=== PATIENT | male | born 1960 | race Caucasian/White ===

== ENCOUNTER 2017-08-07 09:00 | Inpatient (IN) | payer OTHER ==
[2017-08-07] MEDS ORDERED: NORMAL SALINE 1000 ML 1,000 ML IV ONE (09:21)
[2017-08-07] MEDS ORDERED: ONDANSETRON HCL INJ/PF 4 MG/2 ML SDV IV ONE ×2 (09:21→13:59)
[2017-08-07] MEDS ORDERED: HYDROMORPHONE HCL INJ/PF 2 MG/ML AMPULE IV ONE ×3 (09:21→13:59)
[2017-08-07 09:54] LABS: ABSOLUTE BASOPHILS # (AUTO) 0.1 10^3/uL (0.0-0.2); ABSOLUTE EOSINOPHILS # (AUTO) 0.1 10^3/uL (0.0-0.6); ABSOLUTE LYMPHOCYTES (AUTO) 0.9 10^3/uL (0.5-4.7); ABSOLUTE MONOCYTES (AUTO) 1.1 10^3/uL (0.1-1.4); ABSOLUTE NEUT (AUTO) 13.7 10^3/uL (1.7-8.2); BASOPHILS % (AUTO) 0.6 % (0-2); EOSINOPHILS % (AUTO) 0.3 % (0-6); HEMATOCRIT 46.4 % (37.9-51.0); HEMOGLOBIN 16.1 g/dL (13.5-17.0); HGB HCT DIFFERENCE 1.9; LYMPHOCYTES % (AUTO) 5.4 % (13-45); MEAN CORPUSCULAR HEMOGLOBIN 32.5 pg (27.0-33.4); MEAN CORPUSCULAR HGB CONC 34.7 g/dL (32.0-36.0); MEAN CORPUSCULAR VOLUME 94 fl (80-97); RED BLOOD COUNT 4.96 10^6/uL (4.35-5.55); RED CELL DISTRIBUTION WIDTH 14.3 % (11.5-14.0); SEGMENTED NEUTROPHILS % (AUTO) 86.7 % (42-78); WHITE BLOOD COUNT 15.9 10^3/uL (4.0-10.5)
[2017-08-07 10:13] LABS: ALANINE AMINOTRANSFERASE 31 U/L (21-72); ALBUMIN 4.4 g/dL (3.5-5.0); ALKALINE PHOSPHATASE 102 U/L (38-126); ANION GAP 16 (5-19); ASPARTATE AMINO TRANSFERASE 22 U/L (17-59); BILIRUBIN,DIRECT 0.5 mg/dL (0.0-0.4); BILIRUBIN,TOTAL 1.3 mg/dL (0.2-1.3); BLOOD UREA NITROGEN 11 mg/dL (7-20); CALCIUM 10.4 mg/dL (8.4-10.2); CARBON DIOXIDE 23 mmol/L (22-30); CHLORIDE 100 mmol/L (98-107); CREATININE RESULT 0.93 mg/dL (0.52-1.25); GLUCOSE 114 mg/dL (75-110); POTASSIUM 3.9 mmol/L (3.6-5.0); TOTAL PROTEIN 7.7 g/dL (6.3-8.2)
--- NOTE | 2017-08-07 11:24 | ER Document Report ---
ED General - General Chief Complaint: Abdominal Pain Stated Complaint: ABDOMINAL PAIN Time Seen by Provider: 08/07/17 09:20 Mode of Arrival: Ambulatory Information source: Patient Notes: 57-year-old male history of diverticulosis diverticulitis presents with complaints of abdominal pain. Patient denies any fevers or chills. pt has never had an abscess TRAVEL OUTSIDE OF THE [place] IN LAST 30 DAYS: No - HPI Onset: Other - pt started on cipro flagyl 3 days prior with intial improvmenet and then worsening Onset/Duration: Sudden, Waxing and waning Quality of pain: Achy Severity: Mild Pain Level: 1 Associated symptoms: Nausea, Vomiting Exacerbated by: Denies Relieved by: Denies Similar symptoms previously: Yes Recently seen / treated by doctor: Yes - Related Data Allergies/Adverse Reactions: No Known Allergies Allergy (Unverified 12/07/13 15:46) Past Medical History - Social History Smoking Status: Never Smoker Cigarette use (# per day): No Chew tobacco use (# tins/day): No Smoking Education Provided: No Frequency of alcohol use: Occasional Drug Abuse: None Family History: Reviewed & Not Pertinent - Past Medical History Cardiac Medical History: Denies: Hx Coronary Artery Disease, Hx Heart Attack, Hx Hypertension Pulmonary Medical History: Denies: Hx Asthma, Hx Bronchitis, Hx COPD, Hx Pneumonia Neurological Medical History: Denies: Hx Cerebrovascular Accident, Hx Seizures Renal/ Medical History: Denies: Hx Peritoneal Dialysis Musculoskeltal Medical History: Denies Hx Arthritis Past Surgical History: Denies: Hx Pacemaker - Immunizations Hx Diphtheria, Pertussis, Tetanus Vaccination: Yes Review of Systems - Review of Systems Notes: REVIEW OF SYSTEMS: CONSTITUTIONAL : Denies fever, chills, or sweats. Denies recent illness. EENT: Denies eye, ear, throat, or mouth pain or symptoms. Denies nasal or sinus congestion or discharge. Denies throat, tongue, or mouth swelling or difficulty swallowing. CARDIOVASCULAR: Denies chest pain. Denies palpitations or racing or irregular heart beat. Denies ankle edema. RESPIRATORY: Denies cough, cold, or chest congestion. Denies shortness of breath, difficulty breathing, or wheezing. GASTROINTESTINAL: admits to abd pain nausea vomiting GENITOURINARY: Denies difficulty urinating, painful urination, burning, frequency, blood in urine, or discharge. MUSCULOSKELETAL: Denies back or neck pain or stiffness. Denies joint pain or swelling. SKIN: Denies rash, lesions or sores. HEMATOLOGIC : Denies easy bruising or bleeding. LYMPHATIC: Denies swollen, enlarged glands. NEUROLOGICAL: Denies confusion or altered mental status. Denies passing out or loss of consciousness. Denies dizziness or lightheadedness. Denies headache. Denies weakness or paralysis or loss of use of either side. Denies problems with gait or speech. Denies sensory loss, numbness, or tingling. Denies seizures. PSYCHIATRIC: Denies anxiety or stress. Denies depression, suicidal ideation, or homicidal ideation. ALL OTHER SYSTEMS REVIEWED AND NEGATIVE. Dictation was performed using [employer] voice recognition software PHYSICAL EXAMINATION: GENERAL: Well-appearing, well-nourished and in no acute distress. HEAD: Atraumatic, normocephalic. EYES: Pupils equal round and reactive to light, extraocular movements intact, sclera anicteric, conjunctiva are normal. ENT: Nares patent, oropharynx clear without exudates. Moist mucous membranes. NECK: Normal range of motion, supple without lymphadenopathy LUNGS: Breath sounds clear to auscultation bilaterally and equal. No wheezes rales or rhonchi. HEART: Regular rate and rhythm without murmurs ABDOMEN: Soft,tender in the bilateral lower abd with mild guarding Musculoskeletal: Normal range of motion, no pitting or edema. No cyanosis. NEUROLOGICAL: Cranial nerves grossly intact. Normal speech, normal gait. Normal sensory, motor exams PSYCH: Normal mood, normal affect. SKIN: Warm, Dry, normal turgor, no rashes or lesions noted. Physical Exam - Vital signs Vitals: Temp Pulse Resp BP Pulse Ox 98.1 F 103 H 26 H 137/95 H 99 08/07/17 09:03 08/07/17 09:03 08/07/17 09:03 08/07/17 09:03 08/07/17 09:03 Course - Re-evaluation Re-evalutation: 08/07/17 11:24 Patient's physical examination is concerning for an abscess, a CT is pending at this time 08/07/17 12:39 CT is concerning for abscess versus perforation Dr. Webber requests hospital admission he will evaluate patient - Vital Signs Vital signs: Temp Pulse Resp BP Pulse Ox 98.1 F 103 H 16 137/95 H 99 08/07/17 09:03 08/07/17 09:03 08/07/17 09:58 08/07/17 09:03 08/07/17 09:03 - Laboratory Result Diagrams: 08/07/17 09:36 08/07/17 09:36 Laboratory results interpreted by me: 08/07/17 08/07/17 09:36 09:36 WBC 15.9 H RDW 14.3 H Seg Neutrophils % 86.7 H Lymphocytes % 5.4 L Absolute Neutrophils 13.7 H Glucose 114 H Calcium 10.4 H Direct Bilirubin 0.5 H Discharge - Discharge Clinical Impression: Diverticulitis of intestine with abscess Qualifiers: Diverticulitis site: large intestine Diverticulitis bleeding: without bleeding Qualified Code(s): K57.20 - Diverticulitis of large intestine with perforation and abscess without bleeding Abdominal pain Qualifiers: Abdominal location: left lower quadrant Qualified Code(s): R10.32 - Left lower quadrant pain Condition: Stable Disposition: ADMITTED INPATIENT Admitting Provider: Jami Unit Admitted: Telemetry Referrals: GARY RODRIGEZ MD [Primary Care Provider] - Follow up as needed
--- NOTE | 2017-08-07 12:30 | RADIOLOGY REPORT (SQ) ---
EXAM DESCRIPTION: CT ABD/PELVIS WITH IV ORAL COMPLETED DATE/TIME: 08/07/2017 12:15 pm REASON FOR STUDY: hx diverticulosis COMPARISON: None. TECHNIQUE: CT scan of the abdomen and pelvis performed using helical scanning technique with dynamic intravenous contrast injection and with oral contrast. Images reviewed with lung, soft tissue, and b one windows. Reconstructed coronal and sagittal MPR images reviewed. Delayed images for evaluation of the urinary system also acquired. All images stored on PACS. All CT scanners at this facility use dose modulation, iterative reconstruction, and/or weight based d osing when appropriate to reduce radiation dose to as low as reasonably achievable (ALARA). [facility]: Dose Right [facility]: CareDose [facility]: Dose Right [facility]: Teradose 4D [facility]: Panna CONTRAST TYPE AND DOSE: contrast/concentration: Isovue 370.00 mg/ml; Total Contrast Delivered: 100.0 ml; Total Saline Delivered: 72.0 ml RENAL FUNCTION: BUN 11 creatinine 0.93. RADIATION DOSE: Up-to-date CT equipment and radiation dose reduction techniques were employed. CTDIv ol: 8.2 - 12.2 mGy. DLP: 1073 mGy-cm.. LIMITATIONS: None. FINDINGS: LOWER CHEST: No significant findings. No nodules or infiltrates. LIVER: Normal size. No masses. No dilated ducts. SPLEEN: Normal size. No focal lesions. PANCREAS: No masses. No significant calcifications. No adjacent inflammation or peripancreatic fluid collections. Pancreatic duct not dilated. GALLBLADDER: No identified stones by CT criteria. No inflammatory changes to suggest cholecystitis. ADRENAL GLANDS: No significant masses or asymmetry. RIGHT KIDNEY AND URETER: No solid masses. No significant calcifications. No hydronephrosis or hyd roureter. LEFT KIDNEY AND URETER: No solid masses. No significant calcifications. No hydronephrosis or hydr oureter. AORTA AND VESSELS: No aneurysm. No dissection. Renal arteries, SMA, celiac without stenosis. RETROPERITONEUM: No retroperitoneal adenopathy, hemorrhage or masses. BOWEL AND PERITONEAL CAVITY: Diverticuli in the sigmoid colon with inflammatory changes. Focal colle ction of gas and minimal fluid extending posteriorly, measuring just over 2 cm. No free fluid. No f ree air. APPENDIX: Normal. PELVIS: No mass. No free fluid. Normal bladder. ABDOMINAL WALL: No masses. No hernias. BONES: No significant or acute findings. OTHER: No other significant finding. IMPRESSION: 1. ACUTE DIVERTICULITIS IN THE SIGMOID COLON. FOCAL CONTAINED PERFORATION VERSUS EARLY DEVELOPING AB SCESS. 2. NO OTHER SIGNIFICANT OR ACUTE FINDING IN THE ABDOMEN OR PELVIS ON CT SCAN WITH IV CONTRAST. TECHNICAL DOCUMENTATION: JOB ID: [id number] Quality ID # [id number]: Final reports with documentation of one or more dose reduction techniques (e.g., Au tomated exposure control, adjustment of the mA and/or kV according to patient size, use of iterative reconstruction technique) 2010 [employer]- All Rights Reserved
[2017-08-07] MEDS ORDERED: METRONIDAZOLE 500 MG/NS RTU 100 ML IV ONE (12:38)
[2017-08-07] MEDS: NORMAL SALINE 1000 ML 1,000 ML IV PRN ×2 (13:11→14:11)
[2017-08-07] MEDS: CIPROFLOXACIN 400 MG/D5W RTU 400 MG/200 ML RTUPB IV SCH (13:15)
[2017-08-07] MEDS ORDERED: GLUCAGON,HUMAN RECOMB 1 MG INJ SUBCUT PRN (16:43)
[2017-08-07] MEDS ORDERED: DEXTROSE 50%-WATER 25 GM/50 ML DISP.SYRIN IV PRN ×2 (16:43)
[2017-08-07] MEDS ORDERED: DEXTROSE 40% GEL 15 GM TUBE PO PRN ×2 (16:43)
--- NOTE | 2017-08-07 18:53 | CONSULTATION REPORT E ---
Consultation Report NAME: DAVID ESTES : 1960 AGE: 57Y DATE: 08/07/2017 414 A TO: DERRICK AGUILAR M.D. FROM: GARY RODRIGEZ M.D. Requesting Physician REASON FOR CONSULTATION: Patient with acute sigmoid diverticulitis with small local perforation versus starting abscess. HISTORY OF PRESENT ILLNESS: This is a 57-year-old male who initially complained of lower abdominal pain with nausea and vomiting about 3 days ago. He consulted one of the ER physicians who is his neighbor and was given p.o. Flagyl and Cipro initially with some improvement but he still continued to have some mild lower abdominal pain. This morning he woke up with severe lower abdominal pain with nausea and vomiting. He felt hot 2 days ago. Today he did not have any fever at home; however, he had a CAT scan of the abdomen which showed acute sigmoid diverticulitis with small loculated perforation versus small starting abscess. His white count is elevated to 15.9. PAST MEDICAL HISTORY: He claimed he had a history of diverticulitis 2 years ago which improved medically. Cardiac history: Denies hypertension or heart attack. Pulmonary history: Denies asthma or COPD. Urologic history: Denies CVA or seizures. Renal history: Denies any renal problems. Musculoskeletal: Denies arthritis. PAST SURGICAL HISTORY: Denies any previous operations in the past. ALLERGIES: No known drug allergies. REVIEW OF SYSTEMS: Constitutional: Denies any fever or chills though felt a little warm 3 days ago. EENT: Denies ear, eye, throat or mouth pain or symptoms. Denies sinus or nasal congestion or discharge. Cardiovascular: Denies any chest pains. Respiratory: Denies cough, colds or chest congestion, no shortness of breath. Gastrointestinal: Admits to having abdominal pains with nausea and vomiting. Genitourinary: Denies difficulty voiding. Musculoskeletal: Denies any joint pain or swelling. Skin: Denies any rash or lesions or sores. Hematologic: Denies easy bruisability. Lymphatic: Denies swollen or enlarged glands. Neurologic: Denies confusion or altered mental status or passing out. Psychiatric: Denies anxiety or stress or depression. All other systems are reviewed and are negative. PHYSICAL EXAMINATION: GENERAL APPEARANCE: A well-developed, well-nourished male, alert and oriented. Right now feels comfortable after being given some pain medications. HEENT: Head is normocephalic. Eyes: Pupils are equal and reactive to light. No nasal or oropharynx exudates. NECK: Supple. LUNGS: Clear. HEART: Regular sinus rhythm. ABDOMEN: Soft with tenderness in both lower quadrants with mild guarding. MUSCULOSKELETAL: Normal range of motion, no edema. NEUROLOGIC: Cranial nerves are intact. Alert and oriented x3. PSYCHIATRIC: Normal mood and affect. SKIN: Dry and warm. Normal turgor. VITAL SIGNS: Temperature 98.1 degrees Fahrenheit, pulse 103 per minute, respiratory rate 26 per minute, blood pressure 137/95 and pulse oximetry of 99%. LABORATORY DATA: White count of 15.9 and glucose 114, direct bilirubin 0.5. CAT scan showed acute sigmoid diverticulitis with focal contained perforation versus early developing abscess. RECOMMENDATIONS: 1. Continue n.p.o. 2. Start IV antibiotics. 3. Continue hydration for pain management as needed. 4. Will follow up the patient with you. DICTATING PHYSICIAN: DERRICK AGUILAR M.D. [id number] PHY#: [id number] ID: [id number] JOB#: [id number] ACCT: [id number] cc:DERRICK AGUILAR M.D. >
[2017-08-07] MEDS: METRONIDAZOLE RTU 500 MG/NS 100 ML IV SCH (18:59)
[2017-08-07] MEDS: HYDROMORPHONE HCL INJ/PF 2 MG/ML AMPULE IV PRN (19:41)
[2017-08-07] MEDS: FAMOTIDINE INJ/PF 20 MG/2 ML SDV IV SCH (21:27)
[2017-08-07] MEDS: 1/2 NORMAL SALINE 1,000 ML IV PRN (22:01)
[2017-08-08] MEDS: METRONIDAZOLE RTU 500 MG/NS 100 ML IV SCH ×3 (01:54→16:35)
[2017-08-08] MEDS: HYDROMORPHONE HCL INJ/PF 2 MG/ML AMPULE IV PRN ×3 (01:56→21:30)
[2017-08-08] MEDS ORDERED: HYDROMORPHONE HCL INJ/PF 2 MG/ML AMPULE ONE (04:54)
[2017-08-08] MEDS ORDERED: HYDROMORPHONE HCL INJ/PF 2 MG/ML AMPULE IV ONE (05:00)
[2017-08-08 05:06] LABS: HEMATOCRIT 36.8 % (37.9-51.0); HGB HCT DIFFERENCE 2.5; MEAN CORPUSCULAR HEMOGLOBIN 33.1 pg (27.0-33.4); MEAN CORPUSCULAR HGB CONC 35.4 g/dL (32.0-36.0); MEAN CORPUSCULAR VOLUME 93 fl (80-97); RED BLOOD COUNT 3.95 10^6/uL (4.35-5.55); RED CELL DISTRIBUTION WIDTH 13.6 % (11.5-14.0); WHITE BLOOD COUNT 11.5 10^3/uL (4.0-10.5)
[2017-08-08 05:12] LABS: HEMOGLOBIN 13.1 g/dL (13.5-17.0)
--- NOTE | 2017-08-08 07:33 | PDOC H&P ---
History of Present Illness Admission Date/PCP: 08/07/17 16:44 GARY RODRIGEZ MD Patient complains of: 4d BLQ pain History of Present Illness: DAVID ESTES is a 57 year old male with 6 prior episodes of diverticulitis since 2006. 4d ago he got cipro and flagyl from Dr Chun and started to improve. Yesterday pain was worse, and he had vomiting and diarrhea. In 2000 he had an adenomatous polyp. [address] Cleary removed polyps from transverse and sigmoid. He has had 3 scopes. Past Medical History Cardiac Medical History: Reports: Hyperlipidema Denies: Coronary Artery Disease, Myocardial Infarction, Hypertension Pulmonary Medical History: Denies: Asthma, Bronchitis, Chronic Obstructive Pulmonary Disease (COPD), Pneumonia Neurological Medical History: Reports: Migraine Denies: Seizures Endocrine Medical History: Reports: None Renal/ Medical History: Reports: None Malignancy Medical History: Reports: None GI Medical History: Reports: Gastroesophageal Reflux Disease Musculoskeltal Medical History: Reports: Arthritis, Other - [id number] Psychiatric Medical History: Reports: Attention Deficit Hyperactivity Disorder, Other - panic Traumatic Medical History: Reports: None, Other - tear L pcl 2014 Hematology: Denies: Anemia Infectious Medical History: Reports: None Past Surgical History Past Surgical History: Reports: Orthopedic Surgery - orifLclavicle Denies: Pacemaker Social History Information Source: Office Lives with: Alone Smoking Status: Former Smoker Number of Years Smokin Last Time Smoked: 1998 Frequency of Alcohol Use: Social Hx Recreational Drug Use: No Hx Prescription Drug Abuse: No - Advance Directive Resuscitation Status: Full Code Family History Family History: Reviewed & Not Pertinent, Malignancy, Other - many with diverticulitis Parental Family History Reviewed: Yes Children Family History Reviewed: Yes Sibling(s) Family History Reviewed.: Yes Medication/Allergy Home Medications: Atorvastatin Calcium [Lipitor 40 mg Tablet] 40 mg PO QHS 08/07/17 Dm/P-Ephed/Acetaminoph/Doxylam [Nyquil D Cold & Flu Liquid] 1 dose PO HSP PRN Melatonin/Pyridoxine HCl (B6) [Melatonin 3 mg Tablet] 1 tab PO HSP PRN 08/07/17 Ranitidine HCl [Zantac] 300 mg PO DAILY 08/07/17 Allergies/Adverse Reactions: No Known Allergies Allergy (Unverified 12/07/13 15:46) Review of Systems Constitutional: PRESENT: fever(s), headache(s). ABSENT: weight loss Nose, Mouth, and Throat: ABSENT: sore throat Cardiovascular: ABSENT: chest pain, dyspnea on exertion, orthropnea Respiratory: ABSENT: cough Gastrointestinal: PRESENT: abdominal pain, diarrhea, vomiting. ABSENT: constipation, hematochezia, melena Genitourinary: ABSENT: difficulty urinating, dysuria, hematuria Psychiatric: PRESENT: anxiety Physical Exam Vital Signs: Temp Pulse Resp BP Pulse Ox 98.4 F 82 17 121/75 94 08/08/17 03:42 08/08/17 03:42 08/08/17 03:42 08/08/17 03:42 08/08/17 03:42 Intake & Output 08/06/17 08/07/17 08/08/17 07:59 07:59 07:59 Intake Total 2050 Output Total 200 Balance 1850 Weight 187 lb 2.759 oz General appearance: PRESENT: no acute distress Mouth exam: PRESENT: moist, neck supple Neck exam: ABSENT: lymphadenopathy, tenderness, thyromegaly, tracheal deviation Respiratory exam: PRESENT: clear to auscultation wilda Cardiovascular exam: ABSENT: diastolic murmur, irregular rhythm, systolic murmur GI/Abdominal exam: PRESENT: tenderness - mild BLQ. ABSENT: guarding, mass, organolmegaly, rebound Extremities exam: ABSENT: pedal edema Neurological exam: PRESENT: oriented to situation Psychiatric exam: PRESENT: anxious Results Laboratory Results: 08/08/17 04:48 Abnormal - 24 hr 08/07/17 08/07/17 08/08/17 09:36 09:36 04:48 WBC 15.9 H 11.5 H RBC 3.95 L Hgb 13.1 L D Hct 36.8 L RDW 14.3 H Seg Neutrophils % 86.7 H Lymphocytes % 5.4 L Absolute Neutrophils 13.7 H Glucose 114 H Calcium 10.4 H Direct Bilirubin 0.5 H Impressions: Abdomen/Pelvis CT 08/07/17 00:00 IMPRESSION: 1. ACUTE DIVERTICULITIS IN THE SIGMOID COLON. FOCAL CONTAINED PERFORATION VERSUS EARLY DEVELOPING ABSCESS. 2. NO OTHER SIGNIFICANT OR ACUTE FINDING IN THE ABDOMEN OR PELVIS ON CT SCAN WITH IV CONTRAST. Assessment & Plan - Diagnosis (1) Diverticulitis of intestine with abscess Qualifiers: Diverticulitis site: large intestine Diverticulitis bleeding: without bleeding Qualified Code(s): K57.20 - Diverticulitis of large intestine with perforation and abscess without bleeding Is this a current diagnosis for this admission?: Yes Plan: continue suraj mota. Answered many questions. Surgeons seeing too. - Inpatient Certification Medical Necessity: Failure to Improve With Outpatient Therapy, Need Close Monitoring Due to Risk of Patient Decompensation, Need For IV Fluids, Need For Continuous Telemetry Monitoring, Need for Pain Control, Need for IV Antibiotics , Risk of Complication if Not Cared For in Hospital, Risk of Diagnosis Which Will Require Inpatient Eval/Care/Monitoring
[2017-08-08] MEDS: CIPROFLOXACIN 400 MG/D5W RTU 400 MG/200 ML RTUPB IV SCH ×2 (11:23→21:31)
--- NOTE | 2017-08-08 11:29 | PDOC PROGRESS REPORT ---
Subjective Progress Note for:: 08/08/17 Subjective:: Mr Lal is a 57 year old male with marked improvement of pain since yesterday. Noted pain started on last week worsening to 7/10 yesterday. This am now pain is 1/10. On antibiotics IV and NPO. Passing flattus and hungry. Physical Exam Vital Signs: Temp Pulse Resp BP Pulse Ox 97.5 F 82 14 136/93 H 96 08/08/17 09:00 08/08/17 09:00 08/08/17 09:00 08/08/17 09:00 08/08/17 09:00 Intake & Output 08/07/17 08/08/17 08/09/17 06:59 06:59 06:59 Intake Total 2050 Output Total 200 Balance 1850 Weight 88.8 kg General appearance: PRESENT: no acute distress, cooperative Head exam: PRESENT: atraumatic, normocephalic Eye exam: PRESENT: conjunctiva pink Mouth exam: PRESENT: moist GI/Abdominal exam: PRESENT: soft, tenderness - pain LLQ low minimal, marked improvement Extremities exam: PRESENT: full ROM. ABSENT: calf tenderness, clubbing, pedal edema Neurological exam: PRESENT: alert, awake, oriented to person, oriented to place , oriented to time, oriented to situation, CN II-XII grossly intact. ABSENT: motor sensory deficit Results Laboratory Results: 08/08/17 04:48 08/08/17 04:48 WBC 11.5 H RBC 3.95 L Hgb 13.1 L D Hct 36.8 L MCV 93 MCH 33.1 MCHC 35.4 RDW 13.6 Plt Count 232 Impressions: Abdomen/Pelvis CT 08/07/17 00:00 IMPRESSION: 1. ACUTE DIVERTICULITIS IN THE SIGMOID COLON. FOCAL CONTAINED PERFORATION VERSUS EARLY DEVELOPING ABSCESS. 2. NO OTHER SIGNIFICANT OR ACUTE FINDING IN THE ABDOMEN OR PELVIS ON CT SCAN WITH IV CONTRAST. Status: Imported from PACS Assessment & Plan - Diagnosis (1) Diverticulitis of intestine with abscess Qualifiers: Diverticulitis site: large intestine Diverticulitis bleeding: without bleeding Qualified Code(s): K57.20 - Diverticulitis of large intestine with perforation and abscess without bleeding Is this a current diagnosis for this admission?: Yes Plan: Continue NPO at this time for additional 24 hours. With continued improvement clinically and normal WBC patient may be initiated on cliq diet in am tomorrow. Will continue to follow. - Time Time Spent with patient: 15-24 minutes
[2017-08-08] MEDS: FAMOTIDINE INJ/PF 20 MG/2 ML SDV IV SCH ×2 (11:33→21:31)
[2017-08-08] MEDS: 1/2 NORMAL SALINE 1,000 ML IV PRN (15:17)
[2017-08-08] MEDS: [UNRECOGNIZED DRUG - OTHER] IV SCH ×5 (17:42)
[2017-08-08] MEDS: MAGNESIUM SULFATE IV SCH ×5 (17:42)
[2017-08-08] MEDS: POTASSIUM CHLORIDE IV SCH ×5 (17:42)
[2017-08-08] MEDS: 1/2 NORMAL SALINE IV SCH ×5 (17:42)
[2017-08-08] MEDS ORDERED: NORMAL SALINE 1000 ML 1,000 ML with POTASSIUM CHLORIDE 20 MEQ, MAGNESIUM SULFATE 8 MEQ,... IV SCH ×9 (18:00)
[2017-08-09] MEDS: METRONIDAZOLE RTU 500 MG/NS 100 ML IV SCH ×3 (00:19→16:52)
[2017-08-09] MEDS: 1/2 NORMAL SALINE 1,000 ML IV PRN (02:32)
[2017-08-09] MEDS: HYDROMORPHONE HCL INJ/PF 2 MG/ML AMPULE IV PRN (03:56)
[2017-08-09 04:45] LABS: HEMATOCRIT 38.4 % (37.9-51.0); HEMOGLOBIN 13.4 g/dL (13.5-17.0); HGB HCT DIFFERENCE 1.8; MEAN CORPUSCULAR HEMOGLOBIN 32.2 pg (27.0-33.4); MEAN CORPUSCULAR VOLUME 92 fl (80-97); RED BLOOD COUNT 4.18 10^6/uL (4.35-5.55); RED CELL DISTRIBUTION WIDTH 13.9 % (11.5-14.0); WHITE BLOOD COUNT 9.9 10^3/uL (4.0-10.5)
[2017-08-09] MEDS ORDERED: ACETAMINOPHEN 325 MG TABLET PO PRN (05:02)
--- NOTE | 2017-08-09 07:21 | PDOC PROGRESS REPORT ---
Subjective Progress Note for:: 08/09/17 Subjective:: much better. Hungry Physical Exam Vital Signs: Temp Pulse Resp BP Pulse Ox 98.3 F 77 17 139/78 H 99 08/09/17 03:48 08/09/17 03:48 08/09/17 03:48 08/09/17 03:48 08/09/17 03:48 Intake & Output 08/07/17 08/08/17 08/09/17 07:59 07:59 07:59 Intake Total 2050 1800 Output Total 200 1400 Balance 1850 400 Weight 195 lb 12.328 oz 195 lb 12.328 oz General appearance: PRESENT: no acute distress Respiratory exam: PRESENT: clear to auscultation wilda Cardiovascular exam: ABSENT: diastolic murmur, irregular rhythm, systolic murmur GI/Abdominal exam: PRESENT: tenderness - minimal BLQ. ABSENT: mass, organolmegaly Extremities exam: ABSENT: pedal edema Neurological exam: PRESENT: oriented to situation Psychiatric exam: PRESENT: appropriate affect Results Laboratory Results: 08/09/17 04:21 08/09/17 04:21 WBC 9.9 RBC 4.18 L Hgb 13.4 L Hct 38.4 MCV 92 MCH 32.2 MCHC 35.0 RDW 13.9 Plt Count 289 Impressions: Abdomen/Pelvis CT 08/07/17 00:00 IMPRESSION: 1. ACUTE DIVERTICULITIS IN THE SIGMOID COLON. FOCAL CONTAINED PERFORATION VERSUS EARLY DEVELOPING ABSCESS. 2. NO OTHER SIGNIFICANT OR ACUTE FINDING IN THE ABDOMEN OR PELVIS ON CT SCAN WITH IV CONTRAST. Assessment & Plan - Diagnosis (1) Diverticulitis of intestine with abscess Qualifiers: Diverticulitis site: large intestine Diverticulitis bleeding: without bleeding Qualified Code(s): K57.20 - Diverticulitis of large intestine with perforation and abscess without bleeding Is this a current diagnosis for this admission?: Yes Plan: improving. Clear liquids - Inpatient Certification Medical Necessity: Failure to Improve With Outpatient Therapy, Need Close Monitoring Due to Risk of Patient Decompensation, Need for IV Antibiotics, Risk of Complication if Not Cared For in Hospital, Risk of Diagnosis Which Will Require Inpatient Eval/Care/Monitoring
--- NOTE | 2017-08-09 08:43 | PDOC PROGRESS REPORT ---
Subjective Progress Note for:: 08/09/17 Subjective:: Doing better today Hungry Passing flattus Abdominal pain minimal without pain meds 11/30 Physical Exam Vital Signs: Temp Pulse Resp BP Pulse Ox 98.3 F 90 17 139/78 H 99 08/09/17 03:48 08/09/17 07:00 08/09/17 03:48 08/09/17 03:48 08/09/17 03:48 Intake & Output 08/08/17 08/09/17 08/10/17 06:59 06:59 06:59 Intake Total 2050 3600 Output Total 200 1400 Balance 1850 2200 Weight 88.8 kg 88.8 kg General appearance: PRESENT: no acute distress, well-developed, well-nourished Head exam: PRESENT: atraumatic, normocephalic Neck exam: ABSENT: tenderness, thyromegaly, tracheal deviation Respiratory exam: PRESENT: accessory muscle use Pulses: PRESENT: normal dorsalis pedis pul Vascular exam: PRESENT: normal capillary refill GI/Abdominal exam: PRESENT: soft, tenderness - minimal. ABSENT: distended, firm Neurological exam: PRESENT: alert, awake, oriented to person, oriented to place , oriented to time, oriented to situation, CN II-XII grossly intact. ABSENT: motor sensory deficit Results Laboratory Results: 08/09/17 04:21 08/09/17 04:21 WBC 9.9 RBC 4.18 L Hgb 13.4 L Hct 38.4 MCV 92 MCH 32.2 MCHC 35.0 RDW 13.9 Plt Count 289 Impressions: Abdomen/Pelvis CT 08/07/17 00:00 IMPRESSION: 1. ACUTE DIVERTICULITIS IN THE SIGMOID COLON. FOCAL CONTAINED PERFORATION VERSUS EARLY DEVELOPING ABSCESS. 2. NO OTHER SIGNIFICANT OR ACUTE FINDING IN THE ABDOMEN OR PELVIS ON CT SCAN WITH IV CONTRAST. Assessment & Plan - Diagnosis (1) Diverticulitis of intestine with abscess Qualifiers: Diverticulitis site: large intestine Diverticulitis bleeding: without bleeding Qualified Code(s): K57.20 - Diverticulitis of large intestine with perforation and abscess without bleeding Is this a current diagnosis for this admission?: Yes Plan: Advance diet as tolerated to soft Pain control as needed With tolerance of diet and normal WBC and improvement of pain consider D/C home with short term follow up Oral antibiotics [id number] Surgical reeval outpatient, may require colonoscopy outpatient 6-8 weeks Call with questions Discussed with patient need for fiber supplementation
[2017-08-09] MEDS: FAMOTIDINE INJ/PF 20 MG/2 ML SDV IV SCH ×2 (09:09→21:48)
[2017-08-09] MEDS: CIPROFLOXACIN 400 MG/D5W RTU 400 MG/200 ML RTUPB IV SCH ×2 (09:35→21:47)
[2017-08-09] MEDS: [UNRECOGNIZED DRUG - OTHER] IV SCH ×5 (18:03)
[2017-08-09] MEDS: MAGNESIUM SULFATE IV SCH ×5 (18:03)
[2017-08-09] MEDS: POTASSIUM CHLORIDE IV SCH ×5 (18:03)
[2017-08-09] MEDS: 1/2 NORMAL SALINE IV SCH ×5 (18:03)
[2017-08-10] MEDS: METRONIDAZOLE RTU 500 MG/NS 100 ML IV SCH (02:01)
[2017-08-10 04:36] LABS: MEAN CORPUSCULAR HEMOGLOBIN 32.4 pg (27.0-33.4); MEAN CORPUSCULAR HGB CONC 35.1 g/dL (32.0-36.0); MEAN CORPUSCULAR VOLUME 93 fl (80-97); RED BLOOD COUNT 4.33 10^6/uL (4.35-5.55); RED CELL DISTRIBUTION WIDTH 13.6 % (11.5-14.0); WHITE BLOOD COUNT 9.4 10^3/uL (4.0-10.5)
--- NOTE | 2017-08-10 07:56 | PDOC DISCHARGE SUMMARY ---
General - Admit/Disc Date/PCP Admission Date/Primary Care Provider: 08/07/17 16:44 GARY RODRIGEZ MD Discharge Date: 08/10/17 - Discharge Diagnosis (1) Diverticulitis of intestine with abscess Is this a current diagnosis for this admission?: Yes - Additional Information Resuscitation Status: Full Code Discharge Diet: As Tolerated Discharge Activity: Activity As Tolerated Home Medications: Atorvastatin Calcium [Lipitor 40 mg Tablet] 40 mg PO QHS 08/07/17 Melatonin/Pyridoxine HCl (B6) [Melatonin 3 mg Tablet] 1 tab PO HSP PRN 08/07/17 Ranitidine HCl [Zantac] 300 mg PO DAILY 08/07/17 Ciprofloxacin HCl [Cipro 500 mg Tablet] 500 mg PO BID #28 tablet 08/10/17 Metronidazole [Flagyl 500 mg Tablet] 500 mg PO TID #42 tablet 08/10/17 History of Present Illness Patient complains of: BLQ pain History of Present Illness: DAVID ESTES is a 57 year old male with 6 prior episodes of diverticulitis since 2006. 4d ago he got cipro and flagyl from Dr Chun and started to improve. Yesterday pain was worse, and he had vomiting and diarrhea. In 2000 he had an adenomatous polyp. [address] Cleary removed polyps from transverse and sigmoid. He has had 3 scopes. Hospital Course Hospital Course: Pain and leukocytosis resolved on iv cipro & flagyl. Physical Exam Vital Signs: Temp Pulse Resp BP Pulse Ox 98.8 F 64 17 138/86 H 98 08/09/17 20:05 08/10/17 07:00 08/09/17 20:05 08/09/17 20:05 08/09/17 20:05 Intake & Output 08/08/17 08/09/17 08/10/17 07:59 07:59 07:59 Intake Total 2050 3600 1660 Output Total 200 1400 Balance 1850 2200 1660 Weight 195 lb 12.328 oz 195 lb 12.328 oz 195 lb 12.328 oz General appearance: PRESENT: no acute distress Respiratory exam: PRESENT: clear to auscultation wilda Cardiovascular exam: ABSENT: diastolic murmur, irregular rhythm, systolic murmur GI/Abdominal exam: PRESENT: tenderness - minimal LLQ. ABSENT: mass, organolmegaly Extremities exam: ABSENT: pedal edema Neurological exam: PRESENT: oriented to situation Psychiatric exam: PRESENT: anxious Results Laboratory Results: 08/10/17 03:59 Labs- Last Values WBC 9.4 10^3/uL (4.0-10.5) 08/10/17 03:59 RBC 4.33 10^6/uL (4.35-5.55) L 08/10/17 03:59 Hgb 14.0 g/dL (13.5-17.0) 08/10/17 03:59 Hct 40.0 % (37.9-51.0) 08/10/17 03:59 MCV 93 fl (80-97) 08/10/17 03:59 MCH 32.4 pg (27.0-33.4) 08/10/17 03:59 MCHC 35.1 g/dL (32.0-36.0) 08/10/17 03:59 RDW 13.6 % (11.5-14.0) 08/10/17 03:59 Plt Count 332 10^3/uL (150-450) 08/10/17 03:59 Seg Neutrophils % 86.7 % (42-78) H 08/07/17 09:36 Lymphocytes % 5.4 % (13-45) L 08/07/17 09:36 Monocytes % 7.0 % (3-13) 08/07/17 09:36 Eosinophils % 0.3 % (0-6) 08/07/17 09:36 Basophils % 0.6 % (0-2) 08/07/17 09:36 Absolute Neutrophils 13.7 10^3/uL (1.7-8.2) H 08/07/17 09:36 Absolute Lymphocytes 0.9 10^3/uL (0.5-4.7) 08/07/17 09:36 Absolute Monocytes 1.1 10^3/uL (0.1-1.4) 08/07/17 09:36 Absolute Eosinophils 0.1 10^3/uL (0.0-0.6) 08/07/17 09:36 Absolute Basophils 0.1 10^3/uL (0.0-0.2) 08/07/17 09:36 Sodium 139.0 mmol/L (137-145) 08/07/17 09:36 Potassium 3.9 mmol/L (3.6-5.0) 08/07/17 09:36 Chloride 100 mmol/L (98-107) 08/07/17 09:36 Carbon Dioxide 23 mmol/L (22-30) 08/07/17 09:36 Anion Gap 16 (5-19) 08/07/17 09:36 BUN 11 mg/dL (7-20) 08/07/17 09:36 Creatinine 0.93 mg/dL (0.52-1.25) 08/07/17 09:36 Est GFR ( Amer) > 60 (>60) 08/07/17 09:36 Est GFR (Non-Af Amer) > 60 (>60) 08/07/17 09:36 Glucose 114 mg/dL (75-110) H 08/07/17 09:36 Calcium 10.4 mg/dL (8.4-10.2) H 08/07/17 09:36 Total Bilirubin 1.3 mg/dL (0.2-1.3) 08/07/17 09:36 Direct Bilirubin 0.5 mg/dL (0.0-0.4) H 08/07/17 09:36 Indirect Bilirubin Not Reportable 08/07/17 09:36 Neonat Total Bilirubin Not Reportable 08/07/17 09:36 AST 22 U/L (17-59) 08/07/17 09:36 ALT 31 U/L (21-72) 08/07/17 09:36 Alkaline Phosphatase 102 U/L (38-126) 08/07/17 09:36 Total Protein 7.7 g/dL (6.3-8.2) 08/07/17 09:36 Albumin 4.4 g/dL (3.5-5.0) 08/07/17 09:36 Impressions: Abdomen/Pelvis CT 08/07/17 00:00 IMPRESSION: 1. ACUTE DIVERTICULITIS IN THE SIGMOID COLON. FOCAL CONTAINED PERFORATION VERSUS EARLY DEVELOPING ABSCESS. 2. NO OTHER SIGNIFICANT OR ACUTE FINDING IN THE ABDOMEN OR PELVIS ON CT SCAN WITH IV CONTRAST. Qualifiers PATEINT BEING DISCHARGED WITH ANY OF THE FOLLOWING DIAGNOSIS?: No Plan Discharge Plan: home on cipro & flagyl. 1w ov. 2m Cscop
[2017-08-10 08:25] VITALS: BP 126/77
== END 2017-08-10 09:40 | disposition home or self-care (01) | DRG 392 ==
LOC: ER 09:00 → EH 16:17 → UNDOADMIN 16:17 → EH 16:44 → 4N 17:48
PROVIDERS: ADMIT Family Medicine; ATTEND Family Medicine
DX: K57.20 Diverticulitis of large intestine with perforation and abscess without bleeding (principal); E78.5 Hyperlipidemia, unspecified; K21.9 Gastro-esophageal reflux disease without esophagitis; F90.9 Attention-deficit hyperactivity disorder, unspecified type; Z79.899 Other long term (current) drug therapy; Z87.891 Personal history of nicotine dependence
CPT/HCPCS: 36415; 74177; 80053; 85025; 85027; 87040; 96361; 96374; 96375; 96376; 99285; J0744; J1170; J2405; J3411; J3475; J3480; J3490; J7030; S0028

== ENCOUNTER 2017-10-25 08:16 | Day surgery (SDC) | payer OTHER ==
--- NOTE | 2017-10-19 11:01 | HISTORY AND PHYSICAL E ---
History and Physical NAME: DAVID ESTES : 1960 AGE: 57Y ADMITTED: 10/25/2017 ROOM: PRIMARY PHYSICIAN: Jimenez Farrell MD CHIEF COMPLAINT: Colon screening. Remote history of polyps. HISTORY OF PRESENT ILLNESS: The patient had colonoscopy in 2000 with rectal polyp adenoma. Colonoscopy, 2005, showed a 3-mm polyp in ascending colon. The patient had colonoscopy with 2-mm polyp in ascending colon, and adenomatous polyp, right colon. In 2014 colonoscopy as well showed the following: He did have polyps in sigmoid colon and the transverse colon. The patient presents at this time regarding history of polyps, for colonoscopy. ALLERGIES: No known allergies. MEDICATIONS: 1. Ambien. 2. Ibuprofen. 3. Patient takes medication for reflux. SURGERIES: Negative. SOCIAL HISTORY: Patient is single. FAMILY HISTORY: His father had CA of the colon. His mom had shoulder and knee replacements. PHYSICAL EXAMINATION: VITAL SIGNS: Blood pressure 110/90, pulse 80, respirations 18, temp is 98. HEAD, EYES, EARS, NOSE, THROAT: Normal. ABDOMEN: Soft. NEUROLOGIC: Negative. DIAGNOSTICS: Recent CT showed history of diverticulosis. CT done in July showed acute diverticulitis in the sigmoid colon, focal contained perforation. No other significant acute findings. CONCLUSION: Colon screening, remote history of polyps, diverticulosis. PLAN: Colonoscopy, 10/25/2017. DICTATING PHYSICIAN: PORSCHE DAN M.D. [id number] PHY#: [id number] ID: [id number] JOB#: [id number] ACCT: [id number] cc:PORSCHE DAN M.D., ROBERT M.D. >
[2017-10-25] MEDS ORDERED: GLYCOPYRROLATE INJ 0.4 MG/2 ML VIAL ONE (08:39)
[2017-10-25] MEDS ORDERED: ONDANSETRON HCL INJ/PF 4 MG/2 ML SDV ONE (08:39)
[2017-10-25] MEDS ORDERED: GLUCAGON,HUMAN RECOMB 1 MG INJ ONE (08:40)
[2017-10-25] MEDS ORDERED: FLUMAZENIL INJ 0.5 MG/5 ML VIAL ONE (08:40)
[2017-10-25] MEDS ORDERED: EPINEPHRINE INJ 1 MG/10 ML DISP.SYRIN ONE (08:40)
[2017-10-25] MEDS ORDERED: NALOXONE HCL INJ/PF 0.4 MG/1 ML SDV ONE (08:40)
[2017-10-25] MEDS: MIDAZOLAM 2 MG/2 ML INJ ONE ×3 (09:11→09:30)
[2017-10-25] MEDS: FENTANYL CITRATE INJ/PF 100 MCG/2 ML AMPUL ONE ×2 (09:13→09:32)
[2017-10-25 10:46] LABS: ABSOLUTE EOSINOPHILS # (AUTO) 0.1 10^3/uL (0.0-0.6); ABSOLUTE LYMPHOCYTES (AUTO) 1.1 10^3/uL (0.5-4.7); ABSOLUTE MONOCYTES (AUTO) 0.7 10^3/uL (0.1-1.4); ABSOLUTE NEUT (AUTO) 7.8 10^3/uL (1.7-8.2); BASOPHILS % (AUTO) 0.5 % (0-2); EOSINOPHILS % (AUTO) 1.1 % (0-6); HEMATOCRIT 39.7 % (37.9-51.0); HEMOGLOBIN 13.6 g/dL (13.5-17.0); HGB HCT DIFFERENCE 1.1; LYMPHOCYTES % (AUTO) 10.8 % (13-45); MEAN CORPUSCULAR HEMOGLOBIN 31.9 pg (27.0-33.4); MEAN CORPUSCULAR HGB CONC 34.2 g/dL (32.0-36.0); MEAN CORPUSCULAR VOLUME 93 fl (80-97); MONOCYTES % (AUTO) 7.3 % (3-13); RED BLOOD COUNT 4.26 10^6/uL (4.35-5.55); RED CELL DISTRIBUTION WIDTH 13.4 % (11.5-14.0); SEGMENTED NEUTROPHILS % (AUTO) 80.3 % (42-78); WHITE BLOOD COUNT 9.7 10^3/uL (4.0-10.5)
[2017-10-25 11:00] VITALS: BP 101/63
[2017-10-25 11:37] LABS: CARCINOEMBRYONIC ANTIGEN 1.5 ng/mL (<3.0); PROSTATE SPECIFIC ANTIGEN 1.19 ng/mL (<4.00)
--- NOTE | 2017-10-25 14:41 | OPERATIVE REPORT E ---
Operative Report NAME: DAVID ESTES : 1960 AGE: 57Y DATE OF SURGERY: 10/25/2017 ROOM: PREOPERATIVE DIAGNOSIS: Colon screening, history of polyps, history of diverticulosis. POSTOPERATIVE DIAGNOSIS: Sigmoid and descending colon diverticulosis, severe. Some erythema around the diverticula. Small benign-looking polyp, 2 mm, in the sigmoid, biopsy obtained. A 3-mm linear polyp in the cecum on a sharp angle beyond a fold, difficult to biopsy. We had to inject some saline to be able to biopsy it with strong peristalsis, inadequate prep, large amount of feces. is contraindicated at this time because of large amount of stool. OPERATION: Colonoscopy. SURGEON: PORSCHE DAN M.D. TISSUE REMOVED OR ALTERED: Tissue biopsy of polyp, injected and biopsied, cecum, most likely adenoma polyp, linear, sessile, behind a fold, difficult to resect because of the location, inadequate prep and moderate amount of feces. Small sigmoid polyp, 2 mm, biopsied, sigmoid. DESCRIPTION OF PROCEDURE: Rectal exam shows some nodularity in the prostate, rectum otherwise normal. Sigmoid diverticulosis, 2 mm benign-looking polyp. Descending colon diverticulosis. Transverse colon normal. Ascending colon normal. Cecum moderate amount of stool and linear 2 to 3 mm polyp beyond fold. Biopsy obtained. PLAN: 1. CBC, CEA, prostatic specific antigen. 2. Consider follow-up colonoscopy in 6 months to a year pending biopsy results. 3. Patient to be discharged on full liquid diet today, soft low residue for 5 days. 4. Awaiting lab studies and awaiting biopsies. 5. Follow-up office visit in the next few days. DICTATING PHYSICIAN: PORSCHE DAN M.D. [id number] PHY#: [id number] ID: [id number] JOB#: [id number] ACCT: [id number] cc:PORSCHE DAN M.D., ROBERT M.D. >
--- NOTE | 2017-10-25 14:43 | DISCHARGE SUMMARY E ---
Discharge Summary NAME: DAVID ESTES : 1960 AGE: 57Y ADMITTED: 10/25/2017 DISCHARGED: 10/25/2017 HOSPITAL COURSE: The patient is a 57-year-old male who has history of diverticulosis and history of polyps. Today's colonoscopy shows linear small polyp 3 mm cecum behind a fold, inadequate prep, moderate amount of stool secondary to diverticulosis, and small polyp in the sigmoid. DISCHARGE PLAN: Baseline prostate-specific antigen CEA, CBC. Full liquid diet, soft, low residue tomorrow for 3 days. Awaiting biopsy results. Consider followup colonoscopy 6 months to a year pending biopsy and lab results. DICTATING PHYSICIAN: PORSCHE DAN M.D. [id number] PHY#: [id number] ID: [id number] JOB#: [id number] ACCT: [id number] cc:PORSCHE DAN M.D., ROBERT M.D. >
== END 2017-10-25 10:50 | disposition home or self-care (01) ==
LOC: END 08:16
PROVIDERS: ATTEND Specialist
PROC: 0DDN8ZX Extraction of Sigmoid Colon, Via Natural or Artificial Opening Endoscopic, Diagnostic (ICD-10-PCS; principal; 2017-10-25 09:00)
DX: Z12.11 Encounter for screening for malignant neoplasm of colon (principal); K63.5 Polyp of colon; K57.30 Diverticulosis of large intestine without perforation or abscess without bleeding; Z86.010 Personal history of colon polyps; Z80.0 Family history of malignant neoplasm of digestive organs; Z79.1 Long term (current) use of non-steroidal anti-inflammatories (NSAID); Z79.899 Other long term (current) drug therapy
CPT/HCPCS: 45380; 45381; 36415; 82378; 84153; 85025; 88305 ×2; J2250; J3010; J1610; J2405; J0171; J2310; J3490

== ENCOUNTER 2019-03-08 07:55 | Emergency (ER) | payer OTHER ==
[2019-03-08] MEDS ORDERED: KETOROLAC TROMETHAMINE INJ/PF 30 MG/1 ML SDV IV ONE (09:02)
--- NOTE | 2019-03-08 09:05 | ER Document Report ---
ED Medical Screen (RME) - General Chief Complaint: Abdominal Pain Stated Complaint: ABDOMINAL PAIN Time Seen by Provider: 03/08/19 09:01 Primary Care Provider: GARY RODRIGEZ MD [Primary Care Provider] - Follow up as needed Mode of Arrival: Ambulatory Information source: Patient Notes: 58-year-old male presents to ED for complaint of left lower quadrant pain that started on Tuesday. He states the pain got much worse yesterday he denies nausea vomiting but he does have diarrhea. He has a history of diverticulitis 2 years ago. At that time when the diverticulosis polyps ruptured and he was in the hospital for 5 days. He states he has not had any fevers this time. He states he does have severe cramping. He does have tenderness to the left lower quadrant. Patient is alert oriented respirations regular and unlabored speaking in full sentences. I have greeted and performed a rapid initial assessment of this patient. A comprehensive ED assessment and evaluation of the patient, analysis of test results and completion of medical decision making process will be conducted by an additional ED providers. TRAVEL OUTSIDE OF THE [place] IN LAST 30 DAYS: No - Related Data Allergies/Adverse Reactions: No Known Allergies Allergy (Verified 03/08/19 07:56) Past Medical History - Past Medical History Cardiac Medical History: Reports: Hx Hypercholesterolemia Denies: Hx Coronary Artery Disease, Hx Heart Attack, Hx Hypertension Pulmonary Medical History: Denies: Hx Asthma, Hx Bronchitis, Hx COPD, Hx Pneumonia Neurological Medical History: Reports: Hx Migraine. Denies: Hx Cerebrovascular Accident, Hx Seizures Renal/ Medical History: Denies: Hx Peritoneal Dialysis GI Medical History: Reports: Hx Gastroesophageal Reflux Disease Musculoskeltal Medical History: Reports Hx Arthritis Psychiatric Medical History: Reports: Hx Attention Deficit Hyperactivity Disorder Past Surgical History: Reports: Hx Orthopedic Surgery - orifLclavicle. Denies: Hx Pacemaker - Immunizations Hx Diphtheria, Pertussis, Tetanus Vaccination: Yes History of Influenza Vaccine for 08/2017 - 01/2018 Season: No Physical Exam - Vital signs Vitals: Temp Pulse Resp BP Pulse Ox 98.2 F 92 16 119/71 97 03/08/19 07:59 03/08/19 07:59 03/08/19 07:59 03/08/19 07:59 03/08/19 07:59 Course - Vital Signs Vital signs: Temp Pulse Resp BP Pulse Ox 98.2 F 92 16 119/71 97 03/08/19 07:59 03/08/19 07:59 03/08/19 07:59 03/08/19 07:59 03/08/19 07:59 Doctor's Discharge - Discharge Referrals: GARY RODRIGEZ MD [Primary Care Provider] - Follow up as needed
[2019-03-08 09:33] LABS: HEMATOCRIT 45.2 % (37.9-51.0); HEMOGLOBIN 15.6 g/dL (13.5-17.0); MEAN CORPUSCULAR HEMOGLOBIN 33.3 pg (27.0-33.4); MEAN CORPUSCULAR HGB CONC 34.5 g/dL (32.0-36.0); MEAN CORPUSCULAR VOLUME 97 fl (80-97); RED BLOOD COUNT 4.68 10^6/uL (4.35-5.55); RED CELL DISTRIBUTION WIDTH 13.2 % (11.5-14.0); WHITE BLOOD COUNT 10.8 10^3/uL (4.0-10.5)
[2019-03-08 09:45] LABS: ALANINE AMINOTRANSFERASE 26 U/L (21-72); ALKALINE PHOSPHATASE 70 U/L (38-126); ANION GAP 7 (5-19); ASPARTATE AMINO TRANSFERASE 27 U/L (17-59); BILIRUBIN,DIRECT 0.2 mg/dL (0.0-0.4); BILIRUBIN,TOTAL 1.5 mg/dL (0.2-1.3); BLOOD UREA NITROGEN 8 mg/dL (7-20); CALCIUM 9.7 mg/dL (8.4-10.2); CARBON DIOXIDE 29 mmol/L (22-30); CHLORIDE 101 mmol/L (98-107); GLUCOSE 103 mg/dL (75-110); POTASSIUM 3.8 mmol/L (3.6-5.0); SODIUM 136.9 mmol/L (137-145); TOTAL PROTEIN 7.2 g/dL (6.3-8.2)
[2019-03-08 10:02] LABS: ABSOLUTE LYMPHOCYTES# (MANUAL) 0.3 10^3/uL (0.5-4.7); ABSOLUTE MONOCYTES # (MANUAL) 0.4 10^3/uL (0.1-1.4); BASOPHILS % (MANUAL) 0 % (0-2); EOSINOPHILS % (MANUAL) 0 % (0-6); LYMPHOCYTES % (MANUAL) 3 % (13-45); MONOCYTES % (MANUAL) 4 % (3-13); SEGMENTED NEUTROPHILS % (MAN) 93 % (42-78); TOTAL CELLS COUNTED 100
[2019-03-08 10:03] LABS: PLATELET CLUMPS PRESENT; PLATELET COMMENT ADEQUATE; PLATELET COUNT 227 10^3/uL (150-450); RBC MORPHOLOGY COMMENT NORMO-CYTIC/CHROMIC
--- NOTE | 2019-03-08 10:10 | ER Document Report ---
ED General - General Chief Complaint: Abdominal Pain Stated Complaint: ABDOMINAL PAIN Time Seen by Provider: 03/08/19 09:01 Primary Care Provider: GARY RODRIGEZ MD [Primary Care Provider] - Follow up as needed Mode of Arrival: Ambulatory TRAVEL OUTSIDE OF THE [place] IN LAST 30 DAYS: No - HPI Notes: 58-year-old gentleman who presents to the emergency department for evaluation of left lower quadrant abdominal pain. It is colicky in nature. He states is been going on since the middle of the night. Denies any fevers but he has had some chills. No nausea or vomiting. He states he had a loose bowel movement this morning. He states this all seems very consistent with a history of diverticulitis. He had to be hospitalized for it in the past. He states he had some leftover Cipro so he started taking that this morning. - Related Data Allergies/Adverse Reactions: No Known Allergies Allergy (Verified 03/08/19 07:56) Past Medical History - General Information source: Patient - Social History Smoking Status: Former Smoker Chew tobacco use (# tins/day): No Frequency of alcohol use: None Drug Abuse: None Family History: Reviewed & Not Pertinent, Malignancy, Other - many with diverticulitis Patient has suicidal ideation: No Patient has homicidal ideation: No - Past Medical History Cardiac Medical History: Reports: Hx Hypercholesterolemia Denies: Hx Coronary Artery Disease, Hx Heart Attack, Hx Hypertension Pulmonary Medical History: Denies: Hx Asthma, Hx Bronchitis, Hx COPD, Hx Pneumonia Neurological Medical History: Reports: Hx Migraine. Denies: Hx Cerebrovascular Accident, Hx Seizures Renal/ Medical History: Denies: Hx Peritoneal Dialysis GI Medical History: Reports: Hx Gastroesophageal Reflux Disease Musculoskeletal Medical History: Reports Hx Arthritis Psychiatric Medical History: Reports: Hx Attention Deficit Hyperactivity Disorder Past Surgical History: Reports: Hx Orthopedic Surgery - orifLclavicle. Denies: Hx Pacemaker - Immunizations Hx Diphtheria, Pertussis, Tetanus Vaccination: Yes Review of Systems - Review of Systems Constitutional: See HPI EENT: No symptoms reported Cardiovascular: No symptoms reported Respiratory: No symptoms reported Gastrointestinal: See HPI Genitourinary: No symptoms reported Musculoskeletal: No symptoms reported Skin: No symptoms reported Neurological/Psychological: No symptoms reported Physical Exam - Vital signs Vitals: Temp Pulse Resp BP Pulse Ox 98.2 F 92 16 119/71 97 03/08/19 07:59 03/08/19 07:59 03/08/19 07:59 03/08/19 07:59 03/08/19 07:59 - Notes Notes: Vital signs reviewed, please refer to chart. Patient is normocephalic, atraumatic. Pupils equal round, reactive to light. Neck is supple without meningismus. Heart is regular rate and rhythm. Lungs are clear to auscultation bilaterally. Abdomen is soft with mild left lower quadrant tenderness to palpation, normoactive bowel sounds throughout. Extremities without cyanosis, clubbing, edema. Peripheral pulses are equal. Skin is warm and dry. Patient is awake, alert, neurological exam is nonfocal. Course - Re-evaluation Re-evalutation: 03/08/19 10:07 Patient is a 58-year-old gentleman presents to the emergency department for evaluation of left lower quadrant abdominal pain. He has a history of pain similar that was diverticulitis. Laboratory investigations were remarkable only for mildly elevated white blood cell count, mildly elevated bilirubin. Patient states this all feels similar. He does not have a surgical abdomen. His vital signs are unremarkable. I do think it is reasonable to defer imaging at this time and treated with outpatient antibiotics. We will send him home with a small amount of pain and nausea medicine, as well as Cipro and Flagyl. He is to follow-up with his primary care physician at the beginning of next week. He is to return to the emergency department with worsening or new concerning symptoms of any sort. - Vital Signs Vital signs: Temp Pulse Resp BP Pulse Ox 98.2 F 92 16 119/71 97 03/08/19 07:59 03/08/19 07:59 03/08/19 07:59 03/08/19 07:59 03/08/19 07:59 - Laboratory Result Diagrams: 03/08/19 09:11 03/08/19 09:11 Laboratory results interpreted by me: 03/08/19 03/08/19 09:11 09:11 WBC 10.8 H Seg Neuts % (Manual) 93 H Lymphocytes % (Manual) 3 L Abs Neuts (Manual) 10.0 H Abs Lymphs (Manual) 0.3 L Sodium 136.9 L Total Bilirubin 1.5 H Discharge - Discharge Clinical Impression: Non-surgical left lower quadrant abdominal pain, Acute diverticulitis Condition: Stable Disposition: HOME, SELF-CARE Instructions: Oral Narcotic Medication ([facility]), Toradol Injection ([facility]), Diverticulitis ([facility]) Additional Instructions: Rest, stay well-hydrated with small, frequent sips of fluids. Take all the antibiotics as prescribed until gone. Nausea and pain medications as needed. If your pain worsens, you develop fevers, vomiting, or any other new or concerning symptoms, return immediately to the emergency department for evaluation. Otherwise, follow-up with your primary care physician by the beginning of next week. Referrals: GARY RODRIGEZ MD [Primary Care Provider] - Follow up as needed
[2019-03-08 10:15] LABS: APPEARANCE,URINE CLEAR; BILIRUBIN,URINE NEGATIVE (NEGATIVE); COLOR,URINE YELLOW; GLUCOSE, URINE NEGATIVE (NEGATIVE); KETONES,URINE NEGATIVE (NEGATIVE); LEUKOCYTE ESTERASE,URINE NEGATIVE (NEGATIVE); NITRITE,URINE NEGATIVE (NEGATIVE); PROTEIN,URINE NEGATIVE (NEGATIVE); URINE SPECIFIC GRAVITY 1.008; UROBILINOGEN,URINE NEGATIVE mg/dL (<2.0)
[2019-03-08 10:26] VITALS: BP 110/71
== END 2019-03-08 10:28 | disposition home or self-care (01) ==
LOC: ER 07:55
DX: K57.92 Diverticulitis of intestine, part unspecified, without perforation or abscess without bleeding (principal); R10.32 Left lower quadrant pain; R19.7 Diarrhea, unspecified; Z87.891 Personal history of nicotine dependence
CPT/HCPCS: 99284; 96374; 36415; 85025; 80053; 81001; J1885

== ENCOUNTER 2019-04-12 16:01 | Emergency (ER) | payer OTHER ==
[2019-04-12 16:11] VITALS: BP 122/74
[2019-04-12] MEDS ORDERED: ONDANSETRON 4 MG TAB.RAPDIS PO ONE (17:54)
[2019-04-12] MEDS ORDERED: HYDROCODONE/ACETAMINOPHEN 5-325 MG TABLET PO ONE (17:54)
--- NOTE | 2019-04-12 17:56 | ER Document Report ---
ED Medical Screen (RME) - General Chief Complaint: Abdominal Pain Stated Complaint: ABDOMINAL PAIN Time Seen by Provider: 04/12/19 17:42 Primary Care Provider: GARY RODRIGEZ MD [Primary Care Provider] - Follow up as needed Information source: Patient Notes: Patient presents complaining of lower abdominal pain with bloating and nausea. Patient states that he feels as though he is having a diverticulitis flareup. Patient denies any fever, vomiting or blood in the stool. Patient was seen here last month for this and placed on Cipro and Flagyl. Patient finished antibiotics about 2 weeks ago. hx: Hyperlipidemia, GERD, diverticulosis, ADHD I have greeted and performed a rapid initial assessment of this patient. A comprehensive ED assessment and evaluation of the patient, analysis of test results and completion of the medical decision making process will be conducted by additional ED providers. TRAVEL OUTSIDE OF THE [place] IN LAST 30 DAYS: No - Related Data Allergies/Adverse Reactions: No Known Allergies Allergy (Verified 04/12/19 17:53) Past Medical History - Past Medical History Cardiac Medical History: Reports: Hx Hypercholesterolemia Denies: Hx Coronary Artery Disease, Hx Heart Attack, Hx Hypertension Pulmonary Medical History: Denies: Hx Asthma, Hx Bronchitis, Hx COPD, Hx Pneumonia Neurological Medical History: Reports: Hx Migraine. Denies: Hx Cerebrovascular Accident, Hx Seizures Renal/ Medical History: Denies: Hx Peritoneal Dialysis GI Medical History: Reports: Hx Gastroesophageal Reflux Disease Musculoskeltal Medical History: Reports Hx Arthritis Psychiatric Medical History: Reports: Hx Attention Deficit Hyperactivity Disorder Past Surgical History: Reports: Hx Orthopedic Surgery - orifLclavicle. Denies: Hx Pacemaker - Immunizations Hx Diphtheria, Pertussis, Tetanus Vaccination: Yes History of Influenza Vaccine for 08/2017 - 01/2018 Season: No Physical Exam - Vital signs Vitals: Temp Pulse Resp BP Pulse Ox 98.2 F 95 19 122/74 97 04/12/19 16:10 04/12/19 16:10 04/12/19 16:10 04/12/19 16:10 04/12/19 16:10 - Abdominal Tenderness: Tender - Generalized lower abdominal tenderness Course - Vital Signs Vital signs: Temp Pulse Resp BP Pulse Ox 98.2 F 95 19 122/74 97 04/12/19 16:10 04/12/19 16:10 04/12/19 16:10 04/12/19 16:10 04/12/19 16:10 Doctor's Discharge - Discharge Referrals: GARY RODRIGEZ MD [Primary Care Provider] - Follow up as needed
[2019-04-12 18:31] LABS: ABSOLUTE EOSINOPHILS # (AUTO) 0.1 10^3/uL (0.0-0.6); ABSOLUTE LYMPHOCYTES (AUTO) 1.5 10^3/uL (0.5-4.7); ABSOLUTE NEUT (AUTO) 8.4 10^3/uL (1.7-8.2); BASOPHILS % (AUTO) 0.4 % (0-2); EOSINOPHILS % (AUTO) 0.8 % (0-6); HEMATOCRIT 43.8 % (37.9-51.0); LYMPHOCYTES % (AUTO) 13.7 % (13-45); MEAN CORPUSCULAR HEMOGLOBIN 32.8 pg (27.0-33.4); MEAN CORPUSCULAR HGB CONC 34.3 g/dL (32.0-36.0); MEAN CORPUSCULAR VOLUME 96 fl (80-97); MONOCYTES % (AUTO) 8.8 % (3-13); PLATELET COUNT 248 10^3/uL (150-450); RED BLOOD COUNT 4.58 10^6/uL (4.35-5.55); RED CELL DISTRIBUTION WIDTH 13.1 % (11.5-14.0); SEGMENTED NEUTROPHILS % (AUTO) 76.3 % (42-78); TOTAL CELLS COUNTED % (AUTO) 100 %
[2019-04-12 18:47] LABS: ALANINE AMINOTRANSFERASE 30 U/L (21-72); ALBUMIN 4.6 g/dL (3.5-5.0); ALKALINE PHOSPHATASE 89 U/L (38-126); ANION GAP 13 (5-19); ASPARTATE AMINO TRANSFERASE 30 U/L (17-59); BILIRUBIN,DIRECT 0.3 mg/dL (0.0-0.4); BILIRUBIN,TOTAL 1.3 mg/dL (0.2-1.3); BLOOD UREA NITROGEN 9 mg/dL (7-20); CARBON DIOXIDE 27 mmol/L (22-30); CHLORIDE 98 mmol/L (98-107); GLUCOSE 89 mg/dL (75-110); LIPASE 90.7 U/L (23-300); POTASSIUM 3.6 mmol/L (3.6-5.0); TOTAL PROTEIN 7.8 g/dL (6.3-8.2)
--- NOTE | 2019-04-12 22:00 | RADIOLOGY REPORT (SQ) ---
CT ABDOMEN PELVIS WITH IV CONTRAST HISTORY: Lower abdominal pain. COMPARISON: 08/06/2017 TECHNIQUE: CT scan of the abdomen and pelvis was performed with IV contrast. This exam was performed according to our departmental dose-optimization program, which includes automated exposure control, adjustment of the mA and/or kV according to patient size and/or use of iterative reconstruction technique. FINDINGS: The lung bases are clear. No pleural or pericardial effusions. There is no hiatal hernia. The liver, spleen, pancreas, gallbladder, adrenal glands, and kidneys are unremarkable. No urinary stones are seen. The pelvic organs are also unremarkable. The appendix is not seen. There are scattered colonic diverticula without surrounding inflammatory changes. No small bowel obstruction. No intraperitoneal free fluid or free air is seen. The aorta is normal caliber. There are bilateral pars defects at L4-L5 with grade 1 anterolisthesis. There are multilevel degenerative changes of the spine. No pathologic body wall hernia is seen. IMPRESSION: No acute abdominal or pelvic pathology.
[2019-04-12] MEDS ORDERED: KETOROLAC TROMETHAMINE INJ/PF 30 MG/1 ML SDV IV ONE (22:25)
[2019-04-12] MEDS ORDERED: CIPROFLOXACIN HCL 500 MG TABLET PO ONE (22:25)
--- NOTE | 2019-04-12 22:28 | ER Document Report ---
ED General - General Chief Complaint: Abdominal Pain Stated Complaint: ABDOMINAL PAIN Time Seen by Provider: 04/12/19 17:42 Primary Care Provider: GARY RODRIGEZ MD [Primary Care Provider] - Follow up in 3-5 days Notes: Patient is a 58-year-old male without chronic medical problems, presents complaining of 3 days of lower abdominal pain. The patient states that the pain started gradually, has progressively worsened since onset and is now a moderate to severe, cramping, throbbing, diffuse lower abdominal discomfort. Nothing seems to improve or worsen his pain. States that he had had similar pain in the past with diverticulitis and was seen in the emergency department approximate 1 month ago for the same. States that he got better after taking the antibiotics as prescribed but symptoms have recurred and now feels very similar. Has been nauseated but has not had vomiting. No fever. Denies dysuria or hematuria. Is sexually active monogamous with his female partner. Has not seen his primary care doctor regarding today's concerns. TRAVEL OUTSIDE OF THE [place] IN LAST 30 DAYS: No - Related Data Allergies/Adverse Reactions: No Known Allergies Allergy (Verified 04/12/19 17:53) Past Medical History - General Information source: Patient - Social History Smoking Status: Never Smoker Frequency of alcohol use: Occasional Drug Abuse: None Lives with: Spouse/Significant other Family History: Reviewed & Not Pertinent, Malignancy, Other - many with diverticulitis Patient has suicidal ideation: No Patient has homicidal ideation: No - Past Medical History Cardiac Medical History: Reports: Hx Hypercholesterolemia Denies: Hx Coronary Artery Disease, Hx Heart Attack, Hx Hypertension Pulmonary Medical History: Denies: Hx Asthma, Hx Bronchitis, Hx COPD, Hx Pneumonia Neurological Medical History: Reports: Hx Migraine. Denies: Hx Cerebrovascular Accident, Hx Seizures Renal/ Medical History: Denies: Hx Peritoneal Dialysis GI Medical History: Reports: Hx Gastroesophageal Reflux Disease Musculoskeletal Medical History: Reports Hx Arthritis Psychiatric Medical History: Reports: Hx Attention Deficit Hyperactivity Disorder Past Surgical History: Reports: Hx Orthopedic Surgery - orifLclavicle. Denies: Hx Pacemaker - Immunizations Hx Diphtheria, Pertussis, Tetanus Vaccination: Yes Review of Systems - Review of Systems Notes: Constitutional: Negative for fever. HENT: Negative for sore throat. Eyes: Negative for visual changes. Cardiovascular: Negative for chest pain. Respiratory: Negative for shortness of breath. Gastrointestinal: Positive for lower abdominal pain and nausea Genitourinary: Negative for dysuria. Musculoskeletal: Negative for back pain. Skin: Negative for rash. Neurological: Negative for headaches, weakness or numbness. 10 point ROS negative except as marked above and in HPI. Physical Exam - Vital signs Vitals: Temp Pulse Resp BP Pulse Ox 98.2 F 95 19 122/74 97 04/12/19 16:10 04/12/19 16:10 04/12/19 16:10 04/12/19 16:10 04/12/19 16:10 Interpretation: Normal Notes: PHYSICAL EXAMINATION: GENERAL: Well-appearing, well-nourished and in no acute distress. HEAD: Atraumatic, normocephalic. EYES: Pupils equal round and reactive to light, extraocular movements intact, sclera anicteric, conjunctiva are normal. ENT: nares patent, oropharynx clear without exudates. Moist mucous membranes. NECK: Normal range of motion, supple without lymphadenopathy LUNGS: Breath sounds clear to auscultation bilaterally and equal. No wheezes rales or rhonchi. HEART: Regular rate and rhythm without murmurs ABDOMEN: Soft, mild diffuse lower abdominal discomfort without localization, no rmoactive bowel sounds. No guarding, no rebound. No masses appreciated. : No epididymal or testicular tenderness bilaterally. Positive cremasteric reflex bilaterally. Normal testicular lie. Rectal: Bogginess of the prostate with mild tenderness on palpation. EXTREMITIES: Normal range of motion, no pitting or edema. No cyanosis. NEUROLOGICAL: No focal neurological deficits. Moves all extremities spontaneously and on command. PSYCH: Normal mood, normal affect. SKIN: Warm, Dry, normal turgor, no rashes or lesions noted. Course - Re-evaluation Re-evalutation: 04/12/19 22:27 Prostatitis MDM patient presents with 3 days of diffuse lower abdominal discomfort. States this feels similar to when he was treated for diverticulitis at approximately 1 month ago although no confirmatory CT was obtained at that time. A CT scan of the abdomen pelvis was obtained due to the rapidity with which the patient presented with recurrent symptoms as well as some global abdominal lower discomfort on exam. This did not demonstrate any acute findings. Labs likewise are unremarkable. Prostate exam however showed a boggy, tender prostate. Testicular exam unremarkable. I suspect the patient had some improvement on his treatment for diverticulitis as this would have included a 10-day course of ciprofloxacin. This however will be inadequate duration of treatment for prostatitis and so the patient likely had some improvement of symptoms while on antibiotics and then had recurrence after he came off. I started him on a 30-day course of ciprofloxacin and have advised him to follow-up closely with his primary care doctor and urology. At this time will discharge with return precautions and follow-up recommendations. Verbal discharge instructions given a the bedside and opportunity for questions given. Medication warnings reviewed. Patient is in agreement with this plan and has verbalized understanding of return precautions and the need for primary care follow-up in the next 24-72 hours. - Vital Signs Vital signs: Temp Pulse Resp BP Pulse Ox 98.2 F 95 19 122/74 97 04/12/19 16:10 04/12/19 16:10 04/12/19 16:10 04/12/19 16:10 04/12/19 16:10 - Laboratory Result Diagrams: 04/12/19 18:10 04/12/19 18:10 Laboratory results interpreted by me: 04/12/19 04/12/19 18:10 18:10 WBC 11.0 H Absolute Neutrophils 8.4 H Urine Ketones 20 H Ur Leukocyte Esterase TRACE H - Diagnostic Test Radiology reviewed: Reports reviewed Discharge - Discharge Clinical Impression: Lower abdominal pain Prostatitis Qualifiers: Prostatitis type: acute Qualified Code(s): N41.0 - Acute prostatitis Condition: Good Disposition: HOME, SELF-CARE Additional Instructions: Your being treated for an infection of your prostate. Please take all of the antibiotics until they are gone. Do not stop them even if you are feeling better. This infection can be related to multiple bacteria including sexually transmitted infections but can also be related to normal intestinal bacteria such as E. coli. Your CT scan does not demonstrate any evidence of diverticulitis. The remainder of your labs is normal. Please return if you develop a fever greater than 101F, have persistent vomiting, pass out, worsening of your pain, become unable to urinate, or have any other symptoms that are worrisome to you. For your pain: Take ibuprofen 600 mg and acetaminophen 1000 mg every 6 hours together as needed for pain. Prescriptions: Ciprofloxacin HCl [Cipro 500 mg Tablet] 500 mg PO BID #60 tablet Referrals: GARY RODRIGEZ MD [Primary Care Provider] - Follow up in 3-5 days
[2019-04-12 23:13] LABS: APPEARANCE,URINE CLEAR; BILIRUBIN,URINE NEGATIVE (NEGATIVE); COLOR,URINE YELLOW; GLUCOSE, URINE NEGATIVE (NEGATIVE); KETONES,URINE 20 mg/dL (NEGATIVE); LEUKOCYTE ESTERASE,URINE TRACE (NEGATIVE); NITRITE,URINE NEGATIVE (NEGATIVE); PROTEIN,URINE NEGATIVE (NEGATIVE); URINE SPECIFIC GRAVITY 1.018; UROBILINOGEN,URINE NEGATIVE mg/dL (<2.0)
== END 2019-04-12 23:14 | disposition home or self-care (01) ==
LOC: ER 16:01
DX: N41.0 Acute prostatitis (principal); R10.30 Lower abdominal pain, unspecified; R11.0 Nausea; E78.00 Pure hypercholesterolemia, unspecified
CPT/HCPCS: 99284; 96374; 36415; 87086; 83690; 85025; 80053; 81001; 74177; S0119; J1885

== ENCOUNTER 2020-10-25 13:14 | Emergency (ER) | payer OTHER ==
[2020-10-25] MEDS ORDERED: OXYCODONE-ACETAMINOPHEN 5-325 MG TABLET PO ONE (13:47)
[2020-10-25] MEDS ORDERED: PREDNISONE 20 MG TABLET PO ONE (13:49)
--- NOTE | 2020-10-25 13:56 | ER Document Report ---
ED Neck/Back Problem - General Stated Complaint: FALL/ LEG PAIN Time Seen by Provider: 10/25/20 13:37 Mode of Arrival: Ambulatory Information source: Patient Notes: 60-year-old male patient comes emergency room complaining of pain in his left buttocks going down into his left lateral foot. 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 On 10/14/2020 he began developing pain in his left low back and posterior thigh that would come and go. He was seen in urgent care and put on Flexeril, prednisone taper and an anti-inflammatory medication. He has continued to get worse. He was seen again on 10/20/2020 and prescribed Celebrex, Robaxin, and Ultram. He reports that it did help some. He had 2 good days, on Tuesday and Tuesday. Pain got worse last night and has gotten to where he cannot find a comfortable position. TRAVEL OUTSIDE OF THE [place] IN LAST 30 DAYS: No - Related Data Allergies/Adverse Reactions: No Known Allergies Allergy (Verified 04/12/19 17:53) Past Medical History - General Information source: Patient - Social History Smoking Status: Former Smoker Cigarette use (# per day): No Chew tobacco use (# tins/day): No Smoking Education Provided: No Frequency of alcohol use: Social Drug Abuse: None Lives with: Spouse/Significant other Family History: Reviewed & Not Pertinent, Malignancy, Other - many with diverticulitis Patient has suicidal ideation: No Patient has homicidal ideation: No - Past Medical History Cardiac Medical History: Reports: Hx Hypercholesterolemia Neurological Medical History: Reports: Hx Migraine GI Medical History: Reports: Hx Gastroesophageal Reflux Disease Musculoskeletal Medical History: Reports Hx Arthritis Psychiatric Medical History: Reports: Hx Attention Deficit Hyperactivity Disorder Past Surgical History: Reports: Hx Orthopedic Surgery - Right distal clavicle ORIF - Immunizations Hx Diphtheria, Pertussis, Tetanus Vaccination: Yes Review of Systems - Review of Systems Constitutional: No symptoms reported EENT: No symptoms reported Cardiovascular: No symptoms reported Respiratory: No symptoms reported Gastrointestinal: No symptoms reported Genitourinary: No symptoms reported Male Genitourinary: No symptoms reported Musculoskeletal: See HPI Skin: No symptoms reported Hematologic/Lymphatic: No symptoms reported Neurological/Psychological: See HPI Physical Exam - Vital signs Vitals: Temp 98.1 F 10/25/20 13:14 Interpretation: Tachycardic - General General appearance: Appears well, Alert In distress: Mild - Patient reports some mild discomfort, he is able to get reasonably comfortable laying on his back. - HEENT Head: Normocephalic, Atraumatic Eyes: Normal Pupils: PERRL - Respiratory Respiratory status: No respiratory distress - Cardiovascular Rhythm: Tachycardia - Abdominal Inspection: Normal - Back Back: Tender - Some mild tenderness in the left buttock region., Other - Positive straight leg raising on the left reproducing the symptoms of pain and numbness going into the left buttock, thigh, lateral calf and lateral foot. - Extremities General upper extremity: Normal inspection General lower extremity: Normal inspection - Neurological Neuro grossly intact: Yes - Psychological Associated symptoms: Normal affect, Normal mood - Skin Skin Temperature: Warm Skin Moisture: Dry Skin Color: Normal Course - Vital Signs Vital signs: Temp Pulse Resp BP Pulse Ox 98.1 F 124 H 16 128/88 H 97 10/25/20 13:17 10/25/20 13:17 10/25/20 13:17 10/25/20 13:17 10/25/20 13:17 - Diagnostic Test Radiology reviewed: Image reviewed, Reports reviewed - See the radiologist report for the MRI of the lumbar spine. Discharge - Discharge Clinical Impression: Lumbosacral radiculopathy at S1, Spinal stenosis at L4-L5 level Condition: Stable Disposition: HOME, SELF-CARE Additional Instructions: Radiculopathy Radiculopathy is irritation of a nerve. Sometimes this is called "pinched nerve." The pain can be sharp and stabbing, constant and dull, or burning in nature. The pain can occur in any area of the chest, shoulders, or arms. Sometimes the pain is provoked by coughing or moving. Radiculopathy can be caused by physical pressure on a nerve, such as a herniated disc or swollen joint in the spine. It can also be caused by viral infections within the nerve or by nerve damage due to diabetes or blood vessel disease. Radicular pain is treated with antiinflammatory medicine. Injections may help resistant cases, if we can identify a single nerve that's causing the pain. Surgery is usually not necessary. If symptoms do not improve with time, you may need additional testing, such as an MRI or EMG (electromyogram). Return if there is local weakness or numbness, shortness of breath, increasing pain, or other new symptoms. Start taking the prednisone as prescribed tomorrow. Avoid flexion at the hip is much as possible to prevent compression on the involved nerve. Call [facility] in [place] Tuesday to schedule an appointment this week with Dr. Stringer. RETURN TO THE EMERGENCY ROOM IF ANY NEW OR WORSENING SYMPTOMS. Prescriptions: Celecoxib [Celebrex 200 mg Capsule] 200 mg PO Q12 PRN #40 capsule PRN Reason: For Back Pain Prednisone [Deltasone 10 mg Tablet] 10 mg PO ASDIR PRN #21 tablet PRN Reason: Tramadol HCl [Ultram 50 mg Tablet] 50 mg PO ASDIR PRN #30 tablet PRN Reason: Referrals: TARA SZYMANSKI PA-C [Primary Care Provider] - Follow up as needed [facility] [Provider Group] - Follow up in 3-5 days TERRIE STRINGER MD [ASSOCIATE] - Follow up in 3-5 days
--- NOTE | 2020-10-25 15:48 | RADIOLOGY REPORT (SQ) ---
EXAM DESCRIPTION: MRI LUMBAR SPINE WITHOUT IMAGES COMPLETED DATE/TIME: 10/25/2020 3:15 pm REASON FOR STUDY: L S1 radiculopathy COMPARISON: None. TECHNIQUE: Sagittal and Axial imaging includes T1, T2, STIR and gradient echo sequences. Coronal T2/ HASTE imaging. LIMITATIONS: Motion. FINDINGS: VISUALIZED UPPER ABDOMEN: Limited evaluation. No acute or suspicious findings suggested. SEGMENTATION: No transitional anatomy. The lowest well-developed disc space is labeled L5-S1. ALIGNMENT: Grade 1 spondylolisthesis and spondylolysis L4-5. VERTEBRAE: Intact. BONE MARROW: Type 2 Modic endplate changes L2-3 and L4-5. DISC SIGNAL: Desiccation multiple levels. POSTERIOR ELEMENTS: See above. HARDWARE: None in the spine. CORD AND CONUS: Normal in size and signal intensity. Conus at the appropriate level. SOFT TISSUES: No aortic aneurysm seen. No bulky retroperitoneal adenopathy or mass. No paraspinal mas s or fluid. L1-L2: Mild spinal stenosis due to disc osteophyte complex. Facet arthropathy. Mild neural foramina l narrowing bilaterally. L2-L3: Similar findings as at L1-2. L3-L4: Disc bulge and facet arthropathy. No significant stenosis. L4-L5: Moderate spinal stenosis due disc osteophyte complex, malalignment and facet arthropathy. Sev ere right and moderate left neural foraminal narrowing. L5-S1: Disc bulge and facet arthropathy. No significant stenosis. LOWER THORACIC: Incompletely imaged. No stenosis seen. SACRUM: Visualized upper sacrum intact. OTHER: No other significant findings. IMPRESSION: Spondylosis, facet arthropathy and malalignment. Varying degrees of spinal stenosis, mo st severe at L4-5. Neural foraminal stenosis. TECHNICAL DOCUMENTATION: JOB ID: [id number] [employer]- All Rights Reserved Reading location - IP/workstation name: [email or web address]
[2020-10-25 16:48] VITALS: BP 117/85
== END 2020-10-25 16:49 | disposition home or self-care (01) ==
LOC: ER 13:14
DX: M48.061 Spinal stenosis, lumbar region without neurogenic claudication (principal); M54.17 Radiculopathy, lumbosacral region; M47.9 Spondylosis, unspecified; Z87.891 Personal history of nicotine dependence
CPT/HCPCS: 99284; 72148; J7512

== ENCOUNTER 2020-11-04 14:13 | Emergency (ER) | payer OTHER ==
[2020-11-04] MEDS ORDERED: ONDANSETRON HCL INJ/PF 4 MG/2 ML SDV IV ONE ×2 (15:00→17:01)
[2020-11-04] MEDS ORDERED: MORPHINE SULFATE 10 MG/ML INJ IV ONE ×2 (15:00→17:01)
--- NOTE | 2020-11-04 15:01 | ER Document Report ---
ED Medical Screen (RME) - General Chief Complaint: Abdominal Pain Stated Complaint: ABDOMINAL PAIN,VOMITING Time Seen by Provider: 11/04/20 14:59 Primary Care Provider: TARA SZYMANSKI PA-C [Primary Care Provider] - Follow up as needed Notes: HPI: 60-year-old male presenting with left lower quadrant pain that began yesterday with multiple episodes of diarrhea yesterday now constipation today. Patient with history of diverticulitis in the past believes this feels similar to prior episode of diverticulitis. Has had some nausea no vomiting no fever PHYSICAL EXAMINATION: Patient appears moderately uncomfortable. There is moderate tenderness of the left lower quadrant and slightly into the suprapubic right lower quadrant region with some guarding in the left lower quadrant I have greeted and performed a rapid initial assessment of this patient. A comprehensive ED assessment and evaluation of the patient, analysis of test results and completion of medical decision making process will be conducted by an additional ED providers. Please note that clinical decision making for this patient was made during the 2019 pandemic of novel coronavirus which caused a significant strain on the healthcare system including at this particular facility. Criteria for admission discharge and level of care decisions as well as treatment decisions have necessarily changed TRAVEL OUTSIDE OF THE [place] IN LAST 30 DAYS: No - Related Data Allergies/Adverse Reactions: No Known Allergies Allergy (Verified 11/04/20 14:56) Home Medications: gabapentin. atrovastatin. celeboxib Past Medical History - Social History Chew tobacco use (# tins/day): No Frequency of alcohol use: Social Drug Abuse: None - Past Medical History Cardiac Medical History: Reports: Hx Hypercholesterolemia Denies: Hx Coronary Artery Disease, Hx Heart Attack, Hx Hypertension Pulmonary Medical History: Denies: Hx Asthma, Hx Bronchitis, Hx COPD, Hx Pneumonia Neurological Medical History: Reports: Hx Migraine. Denies: Hx Cerebrovascular Accident, Hx Seizures Renal/ Medical History: Denies: Hx Peritoneal Dialysis GI Medical History: Reports: Hx Gastroesophageal Reflux Disease Musculoskeltal Medical History: Reports Hx Arthritis Psychiatric Medical History: Reports: Hx Attention Deficit Hyperactivity Disorder Past Surgical History: Reports: Hx Orthopedic Surgery - Right distal clavicle ORIF. Denies: Hx Pacemaker - Immunizations Hx Diphtheria, Pertussis, Tetanus Vaccination: Yes Physical Exam - Vital signs Vitals: Temp Pulse Resp BP Pulse Ox 97.8 F 109 H 20 127/82 H 97 11/04/20 14:42 11/04/20 14:42 11/04/20 14:42 11/04/20 14:42 11/04/20 14:42 Course - Vital Signs Vital signs: Temp Pulse Resp BP Pulse Ox 97.8 F 109 H 20 127/82 H 97 11/04/20 14:42 11/04/20 14:42 11/04/20 14:42 11/04/20 14:42 11/04/20 14:42 Doctor's Discharge - Discharge Referrals: TARA SZYMANSKI PA-C [Primary Care Provider] - Follow up as needed
[2020-11-04 15:32] LABS: HEMATOCRIT 47.5 % (37.9-51.0); HEMOGLOBIN 16.6 g/dL (13.5-17.0); MEAN CORPUSCULAR HEMOGLOBIN 33.8 pg (27.0-33.4); MEAN CORPUSCULAR VOLUME 97 fl (80-97); PLATELET COUNT 310 10^3/uL (150-450); RED BLOOD COUNT 4.92 10^6/uL (4.35-5.55); RED CELL DISTRIBUTION WIDTH 12.3 % (11.5-14.0); WHITE BLOOD COUNT 18.2 10^3/uL (4.0-10.5)
[2020-11-04 15:49] LABS: ALBUMIN 4.2 g/dL (3.5-5.0); ALKALINE PHOSPHATASE 88 U/L (38-126); ANION GAP 9 (5-19); ASPARTATE AMINO TRANSFERASE 24 U/L (17-59); BILIRUBIN,DIRECT 0.1 mg/dL (0.0-0.4); BILIRUBIN,TOTAL 1.6 mg/dL (0.2-1.3); BLOOD UREA NITROGEN 15 mg/dL (7-20); CALCIUM 9.9 mg/dL (8.4-10.2); CARBON DIOXIDE 26 mmol/L (22-30); CHLORIDE 97 mmol/L (98-107); GLUCOSE 123 mg/dL (75-110); POTASSIUM 3.4 mmol/L (3.6-5.0); TOTAL PROTEIN 7.3 g/dL (6.3-8.2)
[2020-11-04 16:02] LABS: ABSOLUTE LYMPHOCYTES# (MANUAL) 1.5 10^3/uL (0.5-4.7); ABSOLUTE MONOCYTES # (MANUAL) 0.5 10^3/uL (0.1-1.4); BASOPHILS % (MANUAL) 0 % (0-2); EOSINOPHILS % (MANUAL) 0 % (0-6); LYMPHOCYTES % (MANUAL) 8 % (13-45); MONOCYTES % (MANUAL) 3 % (3-13); SEGMENTED NEUTROPHILS % (MAN) 89 % (42-78); TOTAL CELLS COUNTED 100
[2020-11-04 16:04] LABS: RBC MORPHOLOGY COMMENT NORMO-CYTIC/CHROMIC
[2020-11-04 16:05] LABS: PLATELET COMMENT ADEQUATE
[2020-11-04] MEDS ORDERED: NORMAL SALINE 500 ML IV ONE (16:47)
--- NOTE | 2020-11-04 17:06 | ER Document Report ---
ED General - General Chief Complaint: Abdominal Pain Stated Complaint: ABDOMINAL PAIN,VOMITING Time Seen by Provider: 11/04/20 14:59 Primary Care Provider: TARA SZYMANSKI PA-C [Primary Care Provider] - Follow up as needed TRAVEL OUTSIDE OF THE [place] IN LAST 30 DAYS: No - HPI Notes: Patient is a 60-year-old male who presents the emergency department for evaluation of abdominal pain, nausea, vomiting. He had some diarrhea but now he is constipated. He has had 4 episodes of emesis in route to the hospital. It was nonbloody, nonbilious. He states this all feels similar to when he had diverticulitis in the past. No fever but he has had some chills. He denies any dysuria, hematuria, urinary frequency. - Related Data Allergies/Adverse Reactions: No Known Allergies Allergy (Verified 11/04/20 14:56) Home Medications: gabapentin. atrovastatin. celeboxib Past Medical History - General Information source: Patient - Social History Smoking Status: Never Smoker Chew tobacco use (# tins/day): No Frequency of alcohol use: Social Drug Abuse: None Family History: Reviewed & Not Pertinent, Malignancy, Other - many with diverticulitis Patient has homicidal ideation: No - Past Medical History Cardiac Medical History: Reports: Hx Hypercholesterolemia Denies: Hx Coronary Artery Disease, Hx Heart Attack, Hx Hypertension Pulmonary Medical History: Denies: Hx Asthma, Hx Bronchitis, Hx COPD, Hx Pneumonia Neurological Medical History: Reports: Hx Migraine. Denies: Hx Cerebrovascular Accident, Hx Seizures Renal/ Medical History: Denies: Hx Peritoneal Dialysis GI Medical History: Reports: Hx Gastroesophageal Reflux Disease Musculoskeletal Medical History: Reports Hx Arthritis, Reports Hx Sciatica Psychiatric Medical History: Reports: Hx Attention Deficit Hyperactivity Disorde r Past Surgical History: Reports: Hx Orthopedic Surgery - Right distal clavicle ORIF. Denies: Hx Pacemaker - Immunizations Hx Diphtheria, Pertussis, Tetanus Vaccination: Yes Review of Systems - Review of Systems Constitutional: See HPI EENT: No symptoms reported Cardiovascular: No symptoms reported Respiratory: No symptoms reported Gastrointestinal: See HPI Genitourinary: No symptoms reported Musculoskeletal: No symptoms reported Skin: No symptoms reported Neurological/Psychological: No symptoms reported Physical Exam - Vital signs Vitals: Temp Pulse Resp BP Pulse Ox 97.8 F 109 H 20 127/82 H 97 11/04/20 14:42 11/04/20 14:42 11/04/20 14:42 11/04/20 14:42 11/04/20 14:42 - Notes Notes: Vital signs reviewed, please refer to chart. Head is normocephalic, atraumatic. Pupils equal round, reactive to light. Neck is supple without meningismus. Heart is regular rate and rhythm. Lungs are clear to auscultation bilaterally. Abdomen is firm with global tenderness, voluntary guarding, mildly diminished bowel sounds. Extremities without cyanosis, clubbing. Posterior calves are nontender. Peripheral pulses are equal. Skin is warm and dry. Patient is awake, alert, neurological exam is nonfocal. Course - Re-evaluation Re-evalutation: 11/04/20 17:05 Patient presents to the emergency department for evaluation. He was initially seen through triage, had laboratory investigations, pain medicine, nausea medicine, n.p.o. status ordered. He did have an IV and oral contrasted scan ordered. On my exam, I do have a high suspicion for possibility of a perforat ion. I contacted CT, told him that I did not want the patient to wait, I did believe that it was most appropriate for the patient to be CT sooner rather than later. They voiced understanding and will bring him to CT at the first available opportunity. Otherwise, I ordered further pain and nausea medication. He remains n.p.o. 11/04/20 19:00 I went back into evaluate the patient in let him know about CT findings. Findings are consistent with diverticulitis and possible enteritis, but no perfo ration. I was notified by his girlfriend, outside the door, but that he was in the room going to the bathroom. Cipro and Flagyl ordered. We will go back and talk to the patient. 11/04/20 19:31 Patient is feeling stable, pain is better controlled after medication. Serial abdominal exams performed, he is now without guarding. We will start him on Cipro and Flagyl. He will be sent home with a small amount of [place], he started his pain still requires further pain medication he should be reevaluated here and he voiced understanding. He is to return to ED with worsening concerning symptoms of any sort. - Vital Signs Vital signs: Temp Pulse Resp BP Pulse Ox 97.8 F 109 H 20 127/82 H 97 11/04/20 14:42 11/04/20 14:42 11/04/20 14:42 11/04/20 14:42 11/04/20 14:42 - Laboratory Results Result Diagrams: 11/04/20 15:13 11/04/20 15:13 Laboratory Results Interpreted: 11/04/20 11/04/20 15:13 15:13 WBC 18.2 H MCH 33.8 H Seg Neuts % (Manual) 89 H Lymphocytes % (Manual) 8 L Abs Neuts (Manual) 16.2 H Sodium 132.3 L Potassium 3.4 L Chloride 97 L Glucose 123 H Total Bilirubin 1.6 H Critical Laboratory Results Reviewed: No Critical Results - Radiology Results Radiology Results Interpreted: 11/04/20 19:00 Abdomen/Pelvis CT 11/04/20 00:00 IMPRESSION: 1. Colon diverticulosis with fat stranding and some wall thickeni ng in the region of the sigmoid colon suspicious for acute diverticulitis. No abscess or free air. 2. Fat stranding and free fluid adjacent to multiple distal small bowel loops in the right lower abdomen extending adjacent to the cecum. Findings may be due to reactive inflammation or a separate enteritis. No bowel obstruction. 3. Appendix appears normal. 4. Findings suggestive of gastroesophageal reflux. Critical Radiology Results Reviewed: No Critical Results Discharge - Discharge Clinical Impression: Acute diverticulitis of intestine Condition: Stable Disposition: HOME, SELF-CARE Instructions: Low Residue Diet ([facility]), Diverticulitis ([facility]), Oral Narcotic Medication ([facility]) Additional Instructions: Please take medications as prescribed. Watch for constipation with the narcotic medication. Avoid alcohol while taking the Flagyl. Follow-up closely with your primary care provider in 1 to 2 days. If you develop fevers, vomiting or you cannot keep down the antibiotics, increased pain, or any other new or concerning symptoms, please return immediately to the emergency department for reevaluation. Prescriptions: Ciprofloxacin HCl [Cipro 750 mg Tablet] 750 mg PO BID #20 tablet Metronidazole [Flagyl 500 mg Tablet] 500 mg PO TID #21 tablet Referrals: TARA SZYMANSKI PA-C [Primary Care Provider] - Follow up as needed
[2020-11-04] MEDS ORDERED: HYDROMORPHONE HCL INJ/PF 2 MG/ML AMPULE IV ONE (18:28)
--- NOTE | 2020-11-04 18:40 | RADIOLOGY REPORT (SQ) ---
EXAM DESCRIPTION: CT ABD/PELVIS WITH IV ORAL IMAGES COMPLETED DATE/TIME: 11/04/2020 2:42 pm REASON FOR STUDY: LLQ pain diverticulitis hx COMPARISON: 08/07/2017. TECHNIQUE: CT scan of the abdomen and pelvis performed using helical scanning technique with dynamic intravenous contrast injection. Enteric contrast was also given. Images reviewed with lung, soft t issue, and bone windows. Reconstructed coronal and sagittal MPR images reviewed. Delayed images for e valuation of the urinary system also acquired. All images stored on PACS. All CT scanners at this facility use dose modulation, iterative reconstruction, and/or weight based d osing when appropriate to reduce radiation dose to as low as reasonably achievable (ALARA). [facility]: Dose Right [facility]: CareDose [facility]: Dose Right [facility]: Teradose 4D [facility]: CooCoo CONTRAST TYPE AND DOSE: contrast/concentration: Isovue 350.00 mmol/ml; Total Contrast Delivered: 95. 0 ml; Total Saline Delivered: 71.0 ml RENAL FUNCTION: Creatinine 0.79. RADIATION DOSE: CT Rad equipment meets quality standard of care and radiation dose reduction techniq ues were employed. CTDIvol: 7.6 - 10.6 mGy. DLP: 1043 mGy-cm.. LIMITATIONS: None. FINDINGS: LOWER CHEST: Bilateral dependent opacities probably representing atelectasis. LIVER: Normal size. No masses. No dilated ducts. SPLEEN: Normal size. No focal lesions. PANCREAS: No masses. No significant calcifications. No adjacent inflammation or peripancreatic fluid collections. Pancreatic duct not dilated. GALLBLADDER: No identified stones by CT criteria. No inflammatory changes to suggest cholecystitis. ADRENAL GLANDS: No significant masses or asymmetry. RIGHT KIDNEY AND URETER: No solid masses. No significant calcifications. No hydronephrosis or hyd roureter. LEFT KIDNEY AND URETER: No solid masses. No significant calcifications. No hydronephrosis or hydr oureter. AORTA AND VESSELS: No aneurysm. No dissection. Renal arteries, SMA, celiac without stenosis. RETROPERITONEUM: No retroperitoneal adenopathy, hemorrhage or masses. BOWEL AND PERITONEAL CAVITY: Colon diverticulosis. There is fat stranding and apparent wall thickeni ng at the sigmoid colon suspicious for acute diverticulitis. There is also some stranding and mild w all prominence involving some distal small bowel loops with some adjacent free fluid near the base of the cecum. No small bowel obstruction. Enteric contrast is demonstrated in the lower esophagus, goldsmith ggestive of gastroesophageal reflux. Small amount of free fluid. No free air identified. APPENDIX: Normal. The appendix appears to be separate from the above described inflammatory process, coursing superiorly. PELVIS: No mass. No free fluid. Normal bladder. ABDOMINAL WALL: Small fat containing umbilical hernia. BONES: Chronic appearing lateral left rib fracture. No destructive bone lesions. 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 OTHER: No other significant finding. IMPRESSION: 1. Colon diverticulosis with fat stranding and some wall thickening in the region of th e sigmoid colon suspicious for acute diverticulitis. No abscess or free air. 2. Fat stranding and free fluid adjacent to multiple distal small bowel loops in the right lower abd omen extending adjacent to the cecum. Findings may be due to reactive inflammation or a separate ent eritis. No bowel obstruction. 3. Appendix appears normal. 4. Findings suggestive of gastroesophageal reflux. TECHNICAL DOCUMENTATION: JOB ID: [id number] Quality ID # [id number]: Final reports with documentation of one or more dose reduction techniques (e.g., Au tomated exposure control, adjustment of the mA and/or kV according to patient size, use of iterative reconstruction technique) 2010 [employer]- All Rights Reserved Reading location - IP/workstation name: [email or web address]
[2020-11-04] MEDS ORDERED: METRONIDAZOLE 500 MG TABLET PO ONE (18:59)
[2020-11-04] MEDS ORDERED: CIPROFLOXACIN HCL 500 MG TABLET PO ONE (18:59)
[2020-11-04] MEDS ORDERED: ONDANSETRON ODT 4 MG TAB (6 TAB/ER DISP) PO PRN (19:27)
[2020-11-04] MEDS ORDERED: HYDROCODONE/ACETAMINOPHEN 5-325 MG (6 TAB/ER DISP) PO PRN (19:28)
[2020-11-04 19:47] LABS: APPEARANCE,URINE CLEAR; BILIRUBIN,URINE NEGATIVE (NEGATIVE); COLOR,URINE YELLOW; GLUCOSE, URINE NEGATIVE (NEGATIVE); KETONES,URINE TRACE mg/dL (NEGATIVE); LEUKOCYTE ESTERASE,URINE NEGATIVE (NEGATIVE); NITRITE,URINE NEGATIVE (NEGATIVE); PROTEIN,URINE NEGATIVE (NEGATIVE); URINE SPECIFIC GRAVITY 1.059; UROBILINOGEN,URINE NEGATIVE mg/dL (<2.0)
[2020-11-04] MEDS ORDERED: CALCIUM CARBONATE 500 MG TAB.CHEW PO ONE (21:53)
[2020-11-04 22:00] VITALS: BP 133/51
== END 2020-11-04 21:58 | disposition home or self-care (01) ==
LOC: ER 14:13
DX: K57.92 Diverticulitis of intestine, part unspecified, without perforation or abscess without bleeding (principal); R10.32 Left lower quadrant pain; R19.7 Diarrhea, unspecified; K59.00 Constipation, unspecified; E78.00 Pure hypercholesterolemia, unspecified
CPT/HCPCS: 96376; 99285; 96361; 96374; 96375; 36415; 83690; 85025; 80053; 81001; 74177; J2270; J1170; J2405; J7040

== ENCOUNTER 2020-11-08 11:33 | Inpatient (IN) | payer OTHER ==
[2020-11-08] MEDS ORDERED: NORMAL SALINE 1000 ML 1,000 ML IV ONE ×2 (11:41→17:13)
[2020-11-08 13:16] LABS: ABSOLUTE EOSINOPHILS # (AUTO) 0.1 10^3/uL (0.0-0.6); ABSOLUTE LYMPHOCYTES (AUTO) 0.7 10^3/uL (0.5-4.7); ABSOLUTE NEUT (AUTO) 8.8 10^3/uL (1.7-8.2); BASOPHILS % (AUTO) 0.2 % (0-2); EOSINOPHILS % (AUTO) 0.8 % (0-6); HEMATOCRIT 42.2 % (37.9-51.0); HEMOGLOBIN 14.7 g/dL (13.5-17.0); LYMPHOCYTES % (AUTO) 6.6 % (13-45); MEAN CORPUSCULAR HEMOGLOBIN 33.4 pg (27.0-33.4); MEAN CORPUSCULAR VOLUME 96 fl (80-97); MONOCYTES % (AUTO) 9.9 % (3-13); PLATELET COUNT 312 10^3/uL (150-450); RED BLOOD COUNT 4.41 10^6/uL (4.35-5.55); RED CELL DISTRIBUTION WIDTH 11.9 % (11.5-14.0); SEGMENTED NEUTROPHILS % (AUTO) 82.5 % (42-78); TOTAL CELLS COUNTED % (AUTO) 100 %; WHITE BLOOD COUNT 10.6 10^3/uL (4.0-10.5)
[2020-11-08 13:34] LABS: ALBUMIN 3.2 g/dL (3.5-5.0); ALKALINE PHOSPHATASE 63 U/L (38-126); ANION GAP 9 (5-19); ASPARTATE AMINO TRANSFERASE 20 U/L (17-59); BILIRUBIN,DIRECT 0.1 mg/dL (0.0-0.4); BILIRUBIN,TOTAL 0.9 mg/dL (0.2-1.3); BLOOD UREA NITROGEN 9 mg/dL (7-20); CALCIUM 8.5 mg/dL (8.4-10.2); CARBON DIOXIDE 28 mmol/L (22-30); CHLORIDE 91 mmol/L (98-107); GLUCOSE 99 mg/dL (75-110); POTASSIUM 3.2 mmol/L (3.6-5.0); TOTAL PROTEIN 6.2 g/dL (6.3-8.2)
--- NOTE | 2020-11-08 13:42 | ER Document Report ---
Entered by TANYA DELCID SCRIBE 11/08/20 1144 Acting as scribe for:ANDREY PAULINO MD ED GI/ - General Chief Complaint: Lower Abdominal Pain Stated Complaint: LOWER ABDOMINAL PAIN Time Seen by Provider: 11/08/20 11:40 Notes: 60-year-old male patient comes to the emergency room complaining of abdominal pain. He was seen here on 11/04/2020 with a marked leukocytosis, and CT scan showing inflammatory changes with bowel wall thickening and free fluid in the sigmoid colon region. He does have past history of diverticulitis. He has been medically managed at home and reports getting worse. He was discharged on Cipro and Flagyl. He states he has a diarrhea that looks like baby poop, and has severe pain in his pelvic area when he sits on the toilet to have bowel movements. TRAVEL OUTSIDE OF THE [place] IN LAST 30 DAYS: No - Related Data Allergies/Adverse Reactions: No Known Allergies Allergy (Verified 11/04/20 14:56) Past Medical History - General Information source: Patient - Social History Smoking Status: Former Smoker Cigarette use (# per day): No Chew tobacco use (# tins/day): No Smoking Education Provided: No Frequency of alcohol use: Heavy Drug Abuse: None Occupation: [employer] Lives with: Spouse/Significant other Family History: Reviewed & Not Pertinent, Malignancy, Other - many with diverticulitis - Past Medical History Cardiac Medical History: Reports: Hx Hypercholesterolemia Neurological Medical History: Reports: Hx Migraine GI Medical History: Reports: Hx Diverticulitis, Hx Gastroesophageal Reflux Disease Musculoskeletal Medical History: Reports Hx Arthritis Psychiatric Medical History: Reports: Hx Attention Deficit Hyperactivity Disorder Past Surgical History: Reports: Hx Orthopedic Surgery - Right distal clavicle ORIF - Immunizations Hx Diphtheria, Pertussis, Tetanus Vaccination: Yes Review of Systems - Review of Systems Constitutional: No symptoms reported EENT: No symptoms reported Cardiovascular: No symptoms reported Respiratory: No symptoms reported Gastrointestinal: See HPI, Abdominal pain, Diarrhea Genitourinary: No symptoms reported Male Genitourinary: No symptoms reported Musculoskeletal: No symptoms reported Skin: No symptoms reported Hematologic/Lymphatic: No symptoms reported Neurological/Psychological: No symptoms reported -: Yes All other systems reviewed and negative Physical Exam - Vital signs Vitals: Temp Pulse Resp BP Pulse Ox 98.1 F 113 H 16 137/92 H 95 11/08/20 11:38 12/19/20 11:38 11/08/20 11:38 11/08/20 11:38 11/08/20 11:38 - Notes Notes: Physical Exam: General: Alert, appears uncomfortable. HEENT: Normocephalic. Atraumatic. PERRL. Extraocular movements intact. Oropharynx clear. Neck: Supple. Non-tender. Respiratory: No respiratory distress. Clear and equal breath sounds bilaterally. Cardiovascular: Regular rate and rhythm. Abdominal: Exquisite lower abdominal tenderness to palpation, increasing in the suprapubic and pelvis. No distension. Hypoactive Bowel Sounds. Resonant to percuss. Back: No gross abnormalities. Extremities: Moves all four extremities. Upper extremities: Normal inspection. Normal ROM. Lower extremities: Normal inspection. No edema. Normal ROM. Neurological: Normal cognition. AAOx4. Normal speech. Psychological: Normal affect. Normal Mood. Skin: Warm. Dry. Normal color. Course - Vital Signs Vital signs: Temp Pulse Resp BP Pulse Ox 98.1 F 113 H 16 137/92 H 95 11/08/20 11:38 11/08/20 11:38 11/08/20 11:38 11/08/20 11:38 11/08/20 11:38 - Laboratory Results Result Diagrams: 11/08/20 12:59 11/08/20 12:59 Laboratory Results Interpreted: 11/08/20 11/08/20 12:59 12:59 WBC 10.6 H Lymph % (Auto) 6.6 L Absolute Neuts (auto) 8.8 H Seg Neutrophils % 82.5 H Sodium 128.1 L Potassium 3.2 L Chloride 91 L Total Protein 6.2 L Albumin 3.2 L Critical Laboratory Results Reviewed: No Critical Results - Radiology Results Critical Radiology Results Reviewed: Yes Attending or Supervising Physician who Reviewed Radiology: ANDREY PAULINO - Pelvic abscess Discharge - Discharge Clinical Impression: Hypokalemia Diverticulitis of intestine with abscess Qualifiers: Diverticulitis site: large intestine Diverticulitis bleeding: without bleeding Qualified Code(s): K57.20 - Diverticulitis of large intestine with perforation and abscess without bleeding Condition: Stable Disposition: ADMITTED INPATIENT Admitting Provider: Surgicalist Unit Admitted: Medical Floor I personally performed the services described in the documentation, reviewed and edited the documentation which was dictated to the scribe in my presence, and it accurately records my words and actions.
[2020-11-08] MEDS ORDERED: MORPHINE SULFATE 10 MG/ML INJ IV ONE (15:15)
[2020-11-08] MEDS ORDERED: RINGERS SOLUTION,LACTATED 1,000 ML IV ONE (15:15)
[2020-11-08] MEDS ORDERED: ONDANSETRON HCL INJ/PF 4 MG/2 ML SDV IV ONE (15:15)
[2020-11-08 15:29] LABS: APPEARANCE,URINE CLEAR; BILIRUBIN,URINE NEGATIVE (NEGATIVE); COLOR,URINE STRAW; GLUCOSE, URINE NEGATIVE (NEGATIVE); KETONES,URINE NEGATIVE (NEGATIVE); LEUKOCYTE ESTERASE,URINE NEGATIVE (NEGATIVE); NITRITE,URINE NEGATIVE (NEGATIVE); PROTEIN,URINE NEGATIVE (NEGATIVE); URINE SPECIFIC GRAVITY 1.003; UROBILINOGEN,URINE NEGATIVE mg/dL (<2.0)
--- NOTE | 2020-11-08 16:06 | RADIOLOGY REPORT (SQ) ---
EXAM DESCRIPTION: CT ABD/PELVIS WITH IV ORAL<Procedure Description>CT ABD/PELVIS WITH IV ORAL IMAGES COMPLETED DATE/TIME: 11/08/2020 2:58 pm<Completed Time>11/08/2020 2:58 pm REASON FOR STUDY: Failed outpatient treatment recent diverticulitis<Reason For Exam>Failed outpatien t treatment recent diverticulitis <ICD10 Code1> <ICD10 Code2> <ICD10 Code3> <ADM DX> COMPARISON: 11/04/2020 and 08/07/2017 TECHNIQUE: CT scan of the abdomen and pelvis performed using helical scanning technique with dynamic intravenous contrast injection and oral contrast. Images reviewed with lung, soft tissue, and bone w indows. Reconstructed coronal and sagittal MPR images reviewed. Delayed images were not acquired. All images stored on PACS. All CT scanners at this facility use dose modulation, iterative reconstruction, and/or weight based d osing when appropriate to reduce radiation dose to as low as reasonably achievable (ALARA). [facility]: Dose Right [facility]: CareDose [facility]: Dose Right [facility]: Teradose 4D [facility]: [employer] CONTRAST TYPE AND DOSE: contrast/concentration: Isovue 350.00 mmol/ml; Total Contrast Delivered: 94. 0 ml; Total Saline Delivered: 71.0 ml<[facility] Contrast>contrast/concentration: Isovue 350.00 mmol/ml; Tot al Contrast Delivered: 94.0 ml; Total Saline Delivered: 71.0 ml RENAL FUNCTION: GFR > 60. RADIATION DOSE: CT Rad equipment meets quality standard of care and radiation dose reduction techniq ues were employed. CTDIvol: 9.5 - 9.5 mGy. DLP: 1077 mGy-cm.<RADIATION DOSE>CT Rad equipment meets qu ality standard of care and radiation dose reduction techniques were employed. CTDIvol: 9.5 - 9.5 mGy. DLP: 1077 [facility] LIMITATIONS: None. FINDINGS: LOWER CHEST: Bilateral basilar subsegmental atelectasis. LIVER: Normal size. No enhancing masses. No dilated ducts. SPLEEN: Normal size. No focal lesions. PANCREAS: 12 mm low-density lesion in the inferior pancreatic neck, this has enlarged slightly compar ed with 2017, uncertain etiology. No significant calcifications. No adjacent inflammation or peripanc reatic fluid collections. Pancreatic duct not dilated. GALLBLADDER: No calcified stones. No inflammatory changes to suggest cholecystitis. ADRENAL GLANDS: No significant masses. RIGHT KIDNEY AND URETER: No cysts identified. No solid masses identified. No calcified stones. No hyd ronephrosis or hydroureter. LEFT KIDNEY AND URETER: No cysts identified. No solid masses identified. No calcified stones. No hydr onephrosis or hydroureter. AORTA AND VESSELS: No aneurysm. No dissection. Renal arteries, SMA, celiac without significant stenos is. RETROPERITONEUM: No bulky retroperitoneal adenopathy. BOWEL AND PERITONEAL CAVITY: 6.5 x 5.8 by 3.7 cm pelvic abscess, right of the sigmoid colon. Additio nal 2.2 cm rim enhancing abscess is present in the right lower quadrant anterior to the psoas muscle adjacent to the tip of the appendix. Moderate inflammatory changes are present throughout the pericol ic an right lower quadrant small bowel mesenteries with scattered areas of small bowel wall thickenin g. Oral contrast material passes through this region to the cecum. APPENDIX: Normal. PELVIS: 6.5 x 5.8 by 3.7 cm pelvic abscess, right of the sigmoid colon. Additional 2.2 cm rim enhanc ing abscess is present in the right lower quadrant anterior to the psoas muscle adjacent to the tip o f the appendix. Moderate inflammatory changes are present throughout the pericolic an right lower qu adrant small bowel mesenteries with scattered areas of small bowel wall thickening. Oral contrast ma terial passes through this region to the cecum. Unremarkable bladder. ABDOMINAL WALL: No masses. No hernias. BONES: No acute findings. OTHER: No other significant finding. IMPRESSION: 6.5 x 5.8 by 3.7 cm pelvic abscess, right of the sigmoid colon. Additional 2.2 cm rim e nhancing abscess is present in the right lower quadrant anterior to the psoas muscle adjacent to the tip of the appendix. Moderate inflammatory changes are present throughout the pericolic an right lowe r quadrant small bowel mesenteries with scattered areas of small bowel wall thickening. Oral contras t material passes through this region to the cecum. 12 mm low-density lesion in the inferior pancreatic neck, this has enlarged slightly compared with 20 17, uncertain etiology. TECHNICAL DOCUMENTATION: JOB ID: [id number]<Job ID>[id number] Quality ID # [id number]: Final reports with documentation of one or more dose reduction techniques (e.g., Au tomated exposure control, adjustment of the mA and/or kV according to patient size, use of iterative reconstruction technique) 2010 [employer]- All Rights Reserved Reading location - IP/workstation name: [email or web address]
[2020-11-08] MEDS ORDERED: PIPERACILLIN/TAZOBACTAM 3.375 GM VIAL IV ONE (17:14)
[2020-11-08] MEDS: POTASSI CL 20 MEQ/50 ML RIDER 20 MEQ/50 ML RTUPB IV SCH ×3 (18:07→22:06)
[2020-11-08] MEDS ORDERED: ONDANSETRON HCL INJ/PF 4 MG/2 ML SDV IV PRN (19:23)
--- NOTE | 2020-11-08 19:42 | PDOC H&P ---
History of Present Illness Admission Date/PCP: 11/08/20 17:20 TARA SZYMANSKI PA-C Patient complains of: Lower abdominal pelvic pain History of Present Illness: DAVID ESTES is a 60 year old male Presents emergency department for the second time in 4 days complaining lower abdominal pain rating to his pelvis, and perineum. He has a long history of diverticulitis managed on outpatient basis. He was seen in the emergency department 4 days ago where he was found to have a leukocytosis of 18,000, CT scan findings consistent with acute sigmoid diverticulitis, with pericolonic abscess approximately 2 cm in diameter. He was managed on outpatient basis with a p.o. Flagyl and Cipro. Because of worsening symptoms he was reevaluated today in the ED by Dr. Mac Cheema who repeated his CAT scan which demonstrated extension of the abscess to 6-1/2 cm, right perirectal area. CT scan contrast flow through the entire colon into the rectum without obstruction. Patient is receiving IV fluids, IV antibiotics and pain medication feels better. He is being admitted for further management. Of note there is a strong family history of colorectal cancer in his father at age 60, requiring resection. Mother has a strong history of diverticular disease. His last colonoscopy was 2016, he believes, with polypectomies by Dr. Jamison Past Medical History Past Medical History: History of sciatica: History of diverticulitis of sigmoid colon Cardiac Medical History: Reports: Hyperlipidema Denies: Coronary Artery Disease, Myocardial Infarction, Hypertension Pulmonary Medical History: Denies: Asthma, Bronchitis, Chronic Obstructive Pulmonary Disease (COPD), Pneumonia Neurological Medical History: Reports: Migraine Denies: Seizures GI Medical History: Reports: Diverticulitis, Gastroesophageal Reflux Disease Musculoskeltal Medical History: Reports: Arthritis Psychiatric Medical History: Reports: Attention Deficit Hyperactivity Disorder Hematology: Denies: Anemia Past Surgical History Past Surgical History: History shoulder surgery Past Surgical History: Reports: Orthopedic Surgery - Right distal clavicle ORIF Denies: Pacemaker Social History Lives with: Spouse/Significant other Smoking Status: Former Smoker Electronic Cigarette use?: No Frequency of Alcohol Use: Social Hx Recreational Drug Use: No Hx Prescription Drug Abuse: No Family History Family History: None, Reviewed & Not Pertinent, Malignancy, Other - many with diverticulitis Parental Family History Reviewed: Yes Children Family History Reviewed: Yes Sibling(s) Family History Reviewed.: Yes Medication/Allergy Home Medications: Atorvastatin Calcium [Lipitor 40 mg Tablet] 40 mg PO QHS 08/07/17 Ranitidine HCl [Zantac] 300 mg PO DAILY 08/07/17 Ciprofloxacin HCl [Cipro 500 mg Tablet] 500 mg PO BID #20 tablet 03/08/19 Ciprofloxacin HCl [Cipro 750 mg Tablet] 750 mg PO BID 03/08/19 Diclofenac Sodium 75 mg PO DAILY 03/08/19 Hydrocodone/Acetaminophen [[place]ry 5-325 mg Tablet] 1 tab PO Q6H PRN #10 tablet 03/08/19 Metronidazole [Flagyl 500 mg Tablet] 500 mg PO TID #30 tablet 03/08/19 Ondansetron [Zofran Odt 4 mg Tablet] 1 tab PO Q4H PRN #15 tab.rapdis 03/08/19 Ciprofloxacin HCl [Cipro 500 mg Tablet] 500 mg PO BID #60 tablet 04/12/19 Celecoxib [Celebrex 200 mg Capsule] 200 mg PO Q12 PRN #40 capsule 10/25/20 Prednisone [Deltasone 10 mg Tablet] 10 mg PO ASDIR PRN #21 tablet 10/25/20 Tramadol HCl [Ultram 50 mg Tablet] 50 mg PO ASDIR PRN #30 tablet 10/25/20 Ciprofloxacin HCl [Cipro 750 mg Tablet] 750 mg PO BID #20 tablet 11/04/20 Metronidazole [Flagyl 500 mg Tablet] 500 mg PO TID #21 tablet 11/04/20 Allergies/Adverse Reactions: No Known Allergies Allergy (Verified 11/04/20 14:56) Review of Systems Constitutional: PRESENT: as per HPI Eyes: ABSENT: visual disturbances Ears: ABSENT: hearing changes Cardiovascular: ABSENT: chest pain, dyspnea on exertion, edema, orthropnea, palpitations Respiratory: ABSENT: cough, hemoptysis Gastrointestinal: PRESENT: as per HPI, other - Patient denies pneumaturia Genitourinary: PRESENT: other - Some pressure with urination Musculoskeletal: ABSENT: joint swelling Integumentary: ABSENT: rash, wounds Neurological: ABSENT: abnormal gait, abnormal speech, confusion, dizziness, focal weakness, syncope Physical Exam Vital Signs: Temp Pulse Resp BP Pulse Ox 98.1 F 113 H 16 137/92 H 95 11/08/20 11:38 11/08/20 11:38 11/08/20 11:38 11/08/20 11:38 11/08/20 11:38 Intake & Output 11/07/20 11/08/20 11/09/20 06:59 06:59 06:59 Intake Total 1999 Balance 2000 Weight 82.1 kg General appearance: PRESENT: no acute distress Head exam: PRESENT: normocephalic Eye exam: PRESENT: EOMI Mouth exam: PRESENT: dry mucosa Neck exam: PRESENT: full ROM Respiratory exam: PRESENT: clear to auscultation wilda Cardiovascular exam: PRESENT: RRR Pulses: PRESENT: normal carotid pulses, normal radial pulses, normal femoral pulses, normal dorsalis pedis pul GI/Abdominal exam: PRESENT: soft - Soft, no peritoneal signs not distended, but tender over the pubic area with mild guarding Rectal exam: PRESENT: deferred Extremities exam: PRESENT: full ROM Musculoskeletal exam: PRESENT: full ROM Neurological exam: PRESENT: oriented to person, oriented to place, oriented to time, oriented to situation Psychiatric exam: PRESENT: appropriate affect Skin exam: PRESENT: dry Results Laboratory Results: 11/08/20 12:59 11/08/20 12:59 11/08/20 11/08/20 11/08/20 12:59 12:59 15:06 WBC 10.6 H RBC 4.41 Hgb 14.7 Hct 42.2 MCV 96 MCH 33.4 MCHC 35.0 RDW 11.9 Plt Count 312 Seg Neutrophils % 82.5 H Sodium 128.1 L Potassium 3.2 L Chloride 91 L Carbon Dioxide 28 Anion Gap 9 BUN 9 Creatinine 0.70 Est GFR ( Amer) > 60 Glucose 99 Calcium 8.5 Total Bilirubin 0.9 AST 20 Alkaline Phosphatase 63 Total Protein 6.2 L Albumin 3.2 L Lipase 34.9 Urine Color STRAW Urine Appearance CLEAR Urine pH 8.0 Ur Specific [place] 1.003 Urine Protein NEGATIVE Urine Glucose (UA) NEGATIVE Urine Ketones NEGATIVE Urine Blood NEGATIVE Urine Nitrite NEGATIVE Ur Leukocyte Esterase NEGATIVE Urine WBC (Auto) 0 Urine RBC (Auto) 0 Impressions: Abdomen/Pelvis CT 11/08/20 11:40 IMPRESSION: 6.5 x 5.8 by 3.7 cm pelvic abscess, right of the sigmoid colon. Additional 2.2 cm rim enhancing abscess is present in the right lower quadrant anterior to the psoas muscle adjacent to the tip of the appendix. Moderate inf lammatory changes are present throughout the pericolic an right lower quadrant small bowel mesenteries with scattered areas of small bowel wall thickening. Oral contrast material passes through this region to the cecum. 12 mm low-density lesion in the inferior pancreatic neck, this has enlarged sli ghtly compared with 2017, uncertain etiology. Assessment & Plan - Diagnosis (1) Diverticulitis of intestine with abscess Qualifiers: Diverticulitis site: large intestine Diverticulitis bleeding: without bleeding Qualified Code(s): K57.20 - Diverticulitis of large intestine with perforation and abscess without bleeding Is this a current diagnosis for this admission?: Yes Plan: Impression: Acute superimposed on chronic pancreatitis, with pericolonic abscess in the pelvis,Hinchey acute classification 2, no evidence of acute abdomen. History of recurrent diverticulitis managed on outpatient basis. Personal history of colon polyps and strong family history of colon cancer. Plan: 1. We will admit patient to the surgical service keep on clear liquids, IV fluids, intravenous antibiotics. Patient does not need emergent surgery tonight. 2. We will explore interventional radiology percutaneous drainage of the right perirectal abscess at the peritoneal reflection. This abscess may not be amenable to IR drainage. 3. I explained to patient management scenarios including current nonoperative therapy, IV antibiotics, drain placement, interval colonoscopy if able, then scheduled single stage sigmoid colectomy. This could be done open, robotically or laparoscopically. Conversely if patient deteriorates, he may require emergent surgery, colectomy and colostomy. 4. We will check patient's rapid Covid status. 4. We will also more carefully evaluate the radiologists interpretation of pancreatic neck lesion. (2) Consumes alcohol Is this a current diagnosis for this admission?: Yes (3) Elevated cholesterol Is this a current diagnosis for this admission?: Yes (4) Family history of colon cancer Is this a current diagnosis for this admission?: Yes (5) History of colon polyps Is this a current diagnosis for this admission?: Yes (6) Hypokalemia Is this a current diagnosis for this admission?: Yes (7) Pancreatic abnormality Is this a current diagnosis for this admission?: Yes Plan: CT scan report eight 1.2 cm inferior pancreatic neck lesion, new compared to 4 years ago. - Time Time Spent: 30 to 50 Minutes Critical Time spent with patient: 15-24 minutes Smoking Cessation Education: 3 to 10 minutes Medications reviewed and adjusted accordingly: Yes Anticipated Discharge Disposition: Home, Self Care Anticipated Discharge Timeframe: within 72 hours
[2020-11-08] MEDS: RINGERS SOLUTION,LACTATED 1,000 ML IV PRN (22:05)
[2020-11-08] MEDS: KETOROLAC TROMETHAMINE INJ/PF 30 MG/1 ML SDV IV PRN (22:06)
[2020-11-09] MEDS ORDERED: ACETAMINOPHEN INJ/PF 1000 MG/100 ML SDV IV SCH
[2020-11-09] MEDS: POTASSI CL 20 MEQ/50 ML RIDER 20 MEQ/50 ML RTUPB IV SCH (00:28)
[2020-11-09] MEDS: ACETAMINOPHEN 1,000 MG/100 ML RTUPB IV SCH ×6 (01:32→23:06)
[2020-11-09] MEDS ORDERED: PIPERACILLIN/TAZOBACTAM 3.375 GM VIAL IV ONE (03:54)
[2020-11-09] MEDS: PIPERACILLIN SODIUM/TAZOBACTAM 3.375 GM in NORMAL SALINE 100 ML IV SCH ×3 (04:21→18:29)
--- NOTE | 2020-11-09 11:26 | PDOC PROGRESS REPORT ---
Subjective Date:: 11/09/20 Reason For Visit: ACUTE DIVERTICULTITIS WITH PELVIC ABSCESS Patient sleeping, minimal pain overnight Physical Exam Vital Signs: Temp Pulse Resp BP Pulse Ox 98.2 F 71 17 132/82 H 99 11/09/20 08:15 11/09/20 07:11 11/09/20 07:11 11/09/20 07:11 11/09/20 07:11 Intake & Output 11/08/20 11/09/20 11/10/20 06:59 06:59 06:59 Intake Total 3100 150 Balance 3100 150 Weight 84.6 kg General appearance: PRESENT: no acute distress GI/Abdominal exam: PRESENT: other - Still has tenderness in the suprapubic area. Results Laboratory Results: 11/08/20 12:59 11/08/20 12:59 11/08/20 11/08/20 11/08/20 12:59 12:59 15:06 WBC 10.6 H RBC 4.41 Hgb 14.7 Hct 42.2 MCV 96 MCH 33.4 MCHC 35.0 RDW 11.9 Plt Count 312 Seg Neutrophils % 82.5 H Sodium 128.1 L Potassium 3.2 L Chloride 91 L Carbon Dioxide 28 Anion Gap 9 BUN 9 Creatinine 0.70 Est GFR ( Amer) > 60 Glucose 99 Calcium 8.5 Total Bilirubin 0.9 AST 20 Alkaline Phosphatase 63 Total Protein 6.2 L Albumin 3.2 L Lipase 34.9 Urine Color STRAW Urine Appearance CLEAR Urine pH 8.0 Ur Specific [place] 1.003 Urine Protein NEGATIVE Urine Glucose (UA) NEGATIVE Urine Ketones NEGATIVE Urine Blood NEGATIVE Urine Nitrite NEGATIVE Ur Leukocyte Esterase NEGATIVE Urine WBC (Auto) 0 Urine RBC (Auto) 0 Stool for White Cells 11/08/20 18:55 WBC RBC Hgb Hct MCV MCH MCHC RDW Plt Count Seg Neutrophils % Sodium Potassium Chloride Carbon Dioxide Anion Gap BUN Creatinine Est GFR ( Amer) Glucose Calcium Total Bilirubin AST Alkaline Phosphatase Total Protein Albumin Lipase Urine Color Urine Appearance Urine pH Ur Specific [place] Urine Protein Urine Glucose (UA) Urine Ketones Urine Blood Urine Nitrite Ur Leukocyte Esterase Urine WBC (Auto) Urine RBC (Auto) Stool for White Cells NO WBCs SEEN Impressions: Abdomen/Pelvis CT 11/08/20 11:40 IMPRESSION: 6.5 x 5.8 by 3.7 cm pelvic abscess, right of the sigmoid colon. Additional 2.2 cm rim enhancing abscess is present in the right lower quadrant anterior to the psoas muscle adjacent to the tip of the appendix. Moderate inflammatory changes are present throughout the pericolic an right lower quadrant small bowel mesenteries with scattered areas of small bowel wall thickening. Oral contrast material passes through this region to the cecum. 12 mm low-density lesion in the inferior pancreatic neck, this has enlarged slightly compared with 2017, uncertain etiology. Assessment & Plan - Diagnosis (1) Diverticulitis of intestine with abscess Qualifiers: Diverticulitis site: large intestine Diverticulitis bleeding: without bleeding Qualified Code(s): K57.20 - Diverticulitis of large intestine with perforation and abscess without bleeding Is this a current diagnosis for this admission?: Yes Plan: Impression: No evidence of a clinical deterioration patient with complicated diverticulitis, pelvic abscess, on intravenous antibiotics x12 hours Plan: 1. I spoke with Dr. Gee pack, radiologist, who does not feel percutaneous drainage of the perirectal deep pelvic abscess is suitable for drainage. 2. We will continue current therapy, start clear liquids. 3. We will regroup in the morning. (2) Consumes alcohol Is this a current diagnosis for this admission?: Yes (3) Elevated cholesterol Is this a current diagnosis for this admission?: Yes (4) Family history of colon cancer Is this a current diagnosis for this admission?: Yes (5) History of colon polyps Is this a current diagnosis for this admission?: Yes (6) Hypokalemia Is this a current diagnosis for this admission?: Yes (7) Pancreatic abnormality Is this a current diagnosis for this admission?: Yes - Time Anticipated Discharge Disposition: Home, Self Care Anticipated Discharge Timeframe: within 24 hours
[2020-11-09] MEDS: RINGERS SOLUTION,LACTATED 1,000 ML IV PRN (11:42)
[2020-11-09] MEDS: KETOROLAC TROMETHAMINE INJ/PF 30 MG/1 ML SDV IV PRN (18:28)
[2020-11-09] MEDS ORDERED: ZOLPIDEM TARTRATE 5 MG TABLET PO ONE (20:30)
[2020-11-10] MEDS ORDERED: GLUCAGON,HUMAN RECOMB 1 MG INJ SUBCUT PRN (00:42)
[2020-11-10] MEDS ORDERED: DEXTROSE 40% GEL 15 GM TUBE PO PRN ×2 (00:42)
[2020-11-10] MEDS ORDERED: DEXTROSE 50%-WATER 25 GM/50 ML DISP.SYRIN IV PRN ×2 (00:42)
[2020-11-10] MEDS: PIPERACILLIN SODIUM/TAZOBACTAM 3.375 GM in NORMAL SALINE 100 ML IV SCH ×3 (02:05→19:15)
[2020-11-10] MEDS: RINGERS SOLUTION,LACTATED 1,000 ML IV PRN ×2 (02:05→08:44)
[2020-11-10] MEDS: KETOROLAC TROMETHAMINE INJ/PF 30 MG/1 ML SDV IV PRN ×4 (02:11→22:28)
[2020-11-10] MEDS: ACETAMINOPHEN 1,000 MG/100 ML RTUPB IV SCH ×4 (05:19→23:09)
--- NOTE | 2020-11-10 09:59 | PDOC PROGRESS REPORT ---
Subjective Date:: 11/10/20 Reason For Visit: ACUTE DIVERTICULTITIS WITH PELVIC ABSCESS Patient feels better, no fever, continues on IV antibiotics. Physical Exam Vital Signs: Temp Pulse Resp BP Pulse Ox 98.1 F 75 17 158/54 H 100 11/10/20 07:43 11/10/20 07:43 11/09/20 23:00 11/10/20 07:43 11/10/20 07:43 Intake & Output 11/09/20 11/10/20 11/11/20 06:59 06:59 06:59 Intake Total 4100 1806 1000 Balance 4100 1806 1000 Weight 84.6 kg 81.8 kg General appearance: PRESENT: no acute distress GI/Abdominal exam: PRESENT: other - Abdomen much softer, minimal suprapubic t enderness. Results Laboratory Results: 11/08/20 12:59 11/08/20 12:59 11/08/20 18:55 Stool - Stool - Final Impressions: Abdomen/Pelvis CT 11/08/20 11:40 IMPRESSION: 6.5 x 5.8 by 3.7 cm pelvic abscess, right of the sigmoid colon. Additional 2.2 cm rim enhancing abscess is present in the right lower quadrant anterior to the psoas muscle adjacent to the tip of the appendix. Moderate inflammatory changes are present throughout the pericolic an right lower quadrant small bowel mesenteries with scattered areas of small bowel wall thickening. Oral contrast material passes through this region to the cecum. 12 mm low-density lesion in the inferior pancreatic neck, this has enlarged slightly compared with 2017, uncertain etiology. Assessment & Plan - Diagnosis (1) Diverticulitis of intestine with abscess Qualifiers: Diverticulitis site: large intestine Diverticulitis bleeding: without bleeding Qualified Code(s): K57.20 - Diverticulitis of large intestine with perforation and abscess without bleeding Is this a current diagnosis for this admission?: Yes Plan: Impression: Clinically improved complicated recurrent diverticulitis with pelvic abscess Plan: 1. I have spoken with the radiologist today on-call who has reviewed the imaging, and will attempt percutaneous drainage of the perirectal abscess in the deep pelvis. 2. I discussed the above with the patient. Hopefully patient can be sent home in the next 24 hours with drain and oral antibiotics. He understands definitive surgical management, specifically sigmoid colectomy, will be required in the near future. (2) Consumes alcohol Is this a current diagnosis for this admission?: Yes (3) Elevated cholesterol Is this a current diagnosis for this admission?: Yes (4) Family history of colon cancer Is this a current diagnosis for this admission?: Yes (5) History of colon polyps Is this a current diagnosis for this admission?: Yes (6) Hypokalemia Is this a current diagnosis for this admission?: Yes (7) Pancreatic abnormality Is this a current diagnosis for this admission?: Yes - Time Anticipated Discharge Disposition: Home, Self Care Anticipated Discharge Timeframe: within 48 hours
[2020-11-10 10:09] LABS: INTERNATIONAL RATION (INR) 1.22; PROTHROMBIN TIME 15.6 SEC (11.4-15.4)
[2020-11-10] MEDS ORDERED: MIDAZOLAM 2 MG/2 ML INJ ONE (13:40)
[2020-11-10] MEDS ORDERED: FENTANYL CITRATE INJ/PF 100 MCG/2 ML AMPUL ONE (13:40)
--- NOTE | 2020-11-10 15:41 | RADIOLOGY REPORT (SQ) ---
EXAM DESCRIPTION: CT GUIDED PERCUT DRAIN W/CATH IMAGES COMPLETED DATE/TIME: 11/10/2020 2:50 pm REASON FOR STUDY: Percutaneous drainage of abscess COMPARISON: CT of the abdomen and pelvis from 11/08/2020. FLUORO TIME: 8.5 seconds. 117 images submitted to PACS. LIMITATIONS: None. PROCEDURE: The procedure, risks, benefits, and alternatives were discussed with the patient in the p reprocedural area, and all questions were answered. Informed consent was obtained verbally and in wri ting. The patient was then brought to the CT suite, positioned prone on the CT gurney, and a time-out was p erformed. After that, axial images of the pelvis were obtained for targeting of the perirectal fluid collection. Based on review of the axial images an appropriate access site was selected on the skin . The area around the selected access site was then prepped and draped with 2% chlorhexidine utilizing standard sterile technique. After that, the access site was infiltrated with 1% lidocaine and an inc ision was made perpendicular to the skin surface with a #11 blade. An 18 gauge access needle was then advanced through the skin incision and into the fluid collection utilizing CT fluoroscopic guidance. Next the needle was exchanged over a 0.038 inch guidewire for a 10 English dilator, which was used to dilate the percutaneous track. The dilator was then removed and a 10 English all-purpose drainage cat heter was advanced over the guidewire into the fluid collection. After that, the guidewire and inner dilator of the catheter were removed and the catheter was formed within the fluid collection. Proper position of catheter was then confirmed with repeat axial images of the pelvis. After that, the jayleen ter was locked in position, secured in place with a StayFix device and attached to a drainage bag. The patient tolerated the procedure well without immediate complication. At the end of the procedure the patient's condition was unchanged from the preprocedural baseline. IV conscious sedation was administered at the direction of the performing physician by a reinaldo vidales. 2 milligrams of Versed and 125 micrograms of fentanyl were administered. Physiologic monitoring was provided before, during, and after sedation. The total sedation time was 30 minutes. Documentation of [id number] time the proceduralist spent monitoring the patient: 15 minutes. IMPRESSION: Successful CT-guided placement of a 10 English all-purpose drainage catheter into the per irectal fluid collection. 5-10 mL of viscous fluid were aspirated from the collection and submitted for analysis. COMMENT: Patient medication list reviewed: Yes- Quality ID# 130:Eligible professional attests to doc umenting in the medical record they obtained, updated, or reviewed the patient's current medications. Quality ID #76: The patient was prepped and draped using maximum sterile barrier technique including cap, mask, sterile gown, sterile gloves, a large sterile sheet, hand hygiene, and 2% Chlorhexidine fo r cutaneous antisepsis. When ultrasound is used, sterile ultrasound techniques are followed requiring sterile gel and sterile probes. Quality ID 145: Final reports for procedures using fluoroscopy that document radiation exposure damon elva, or exposure time and number of fluorographic images (if radiation exposure indices are not avail able) Quality ID# 436: Final reports with documentation of one or more dose reduction techniques (e.g., Aut omated exposure control, adjustment of the mA and/or kV according to patient size, use of iterative r econstruction technique) TECHNICAL DOCUMENTATION: JOB ID: [id number] 2010 [employer]- All Rights Reserved rev-03/08 Reading location - IP/workstation name: [email or web address]
[2020-11-10] MEDS: OXYCODONE-ACETAMINOPHEN 5-325 MG TABLET PO PRN (20:30)
[2020-11-10] MEDS: ZOLPIDEM TARTRATE 5 MG TABLET PO SCH (21:38)
[2020-11-11] MEDS: PIPERACILLIN SODIUM/TAZOBACTAM 3.375 GM in NORMAL SALINE 100 ML IV SCH ×3 (02:37→18:00)
[2020-11-11] MEDS: RINGERS SOLUTION,LACTATED 1,000 ML IV PRN ×2 (03:33→11:20)
[2020-11-11] MEDS: OXYCODONE-ACETAMINOPHEN 5-325 MG TABLET PO PRN ×3 (03:36→21:02)
[2020-11-11] MEDS: ACETAMINOPHEN 1,000 MG/100 ML RTUPB IV SCH ×4 (06:08→23:51)
--- NOTE | 2020-11-11 15:10 | PDOC PROGRESS REPORT ---
Subjective Date:: 11/11/20 Subjective:: feels well payton clears having some diarrhea Reason For Visit: ACUTE DIVERTICULTITIS WITH PELVIC ABSCESS Physical Exam Vital Signs: Temp Pulse Resp BP Pulse Ox 98.5 F 78 16 152/85 H 100 11/11/20 10:53 11/11/20 10:53 11/11/20 10:53 11/11/20 10:53 11/11/20 10:53 Intake & Output 11/10/20 11/11/20 11/12/20 06:59 06:59 06:59 Intake Total 1806 2860 1100 Balance 1806 2860 1100 Weight 81.8 kg 82.1 kg General appearance: PRESENT: no acute distress Head exam: PRESENT: normocephalic Eye exam: PRESENT: EOMI Ear exam: PRESENT: normal external ear exam Mouth exam: PRESENT: moist Neck exam: PRESENT: full ROM Respiratory exam: PRESENT: clear to auscultation wilda Cardiovascular exam: PRESENT: RRR Pulses: PRESENT: normal femoral pulses, normal dorsalis pedis pul Vascular exam: PRESENT: normal capillary refill Breast: PRESENT: Normal GI/Abdominal exam: PRESENT: soft Rectal exam: PRESENT: deferred Extremities exam: PRESENT: full ROM Neurological exam: PRESENT: alert, awake, oriented to person, oriented to place Psychiatric exam: PRESENT: appropriate affect Skin exam: PRESENT: dry Results Laboratory Results: 11/08/20 12:59 11/08/20 12:59 11/08/20 18:55 Stool - Stool - Final 11/08/20 18:55 Stool - Stool Stool Culture - Final C.albicans/C.dubliniensis Impressions: Abdomen/Pelvis CT 11/08/20 11:40 IMPRESSION: 6.5 x 5.8 by 3.7 cm pelvic abscess, right of the sigmoid colon. Additional 2.2 cm rim enhancing abscess is present in the right lower quadrant anterior to the psoas muscle adjacent to the tip of the appendix. Moderate inflammatory changes are present throughout the pericolic an right lower quadrant small bowel mesenteries with scattered areas of small bowel wall thickening. Oral contrast material passes through this region to the cecum. 12 mm low-density lesion in the inferior pancreatic neck, this has enlarged slightly compared with 2017, uncertain etiology. Percutaneous Drainage 11/10/20 00:00 IMPRESSION: Successful CT-guided placement of a 10 [place] all-purpose drainage catheter into the perirectal fluid collection. 5-10 mL of viscous fluid were aspirated from the collection and submitted for analysis. Assessment & Plan - Diagnosis (1) Diverticulitis of intestine with abscess Qualifiers: Diverticulitis site: large intestine Diverticulitis bleeding: without bleeding Qualified Code(s): K57.20 - Diverticulitis of large intestine with perforation and abscess without bleeding Is this a current diagnosis for this admission?: Yes - Time Anticipated Discharge Disposition: Home, Self Care Anticipated Discharge Timeframe: within 48 hours - Plan Summary Plan Summary: doing well after perc drain payton clears wants reg food also discussed need for colon surgery as well as w/u of the cystic structure on the neck of the pancreas will advnce diet today if he tolerates, will dc home and seen in office nxt wk will arrange for eus of the pancrase then.
[2020-11-11] MEDS: KETOROLAC TROMETHAMINE INJ/PF 30 MG/1 ML SDV IV PRN ×2 (17:40→23:51)
[2020-11-11] MEDS: ZOLPIDEM TARTRATE 5 MG TABLET PO SCH (21:03)
[2020-11-12] MEDS: RINGERS SOLUTION,LACTATED 1,000 ML IV PRN (00:43)
[2020-11-12] MEDS: PIPERACILLIN SODIUM/TAZOBACTAM 3.375 GM in NORMAL SALINE 100 ML IV SCH ×2 (02:19→09:26)
[2020-11-12] MEDS ORDERED: ACETAMINOPHEN 1,000 MG/100 ML RTUPB IV SCH (06:00)
--- NOTE | 2020-11-12 08:27 | PDOC DISCHARGE SUMMARY ---
General - Admit/Disc Date/PCP Admission Date/Primary Care Provider: 11/08/20 17:20 TARA SZYMANSKI PA-C Discharge Date: 11/12/20 - Discharge Diagnosis Final Diagnosis: Complicated diverticulitis - Assessment Summary: This is a 60-year-old male with recurrent episodes of diverticulitis. This episode was complicated by pericolonic abscess. His abscess was drained percutaneously via radiology. Patient was continued on intravenous antibiotics, and defervesced quickly. By 11/12/2020 the patient is ambulating, tolerating a diet, and is comfortable with oral pain medications. At this time it is felt that the patient has reached maximal hospital benefit, and is fit for discharge. - Additional Information Resuscitation Status: Full Code Discharge Diet: As Tolerated Discharge Activity: Balance Activity w/Rest Referrals: TARA SZYMANSKI PA-C [Primary Care Provider] - Follow up as needed Prescriptions: Amoxicillin/Potassium Clav [Augmentin 875-125 Tablet] 1 tab PO Q12 #14 tablet Metronidazole [Flagyl 500 mg Tablet] 500 mg PO TID #21 tablet Oxycodone HCl/Acetaminophen [Percocet 5-325 mg Tablet] 1 tab PO Q6HP PRN #15 tablet PRN Reason: Home Medications: Atorvastatin Calcium [Lipitor 40 mg Tablet] 40 mg PO QHS 08/07/17 Celecoxib [Celebrex 200 mg Capsule] 200 mg PO Q12 PRN #40 capsule 10/25/20 Cyclobenzaprine HCl [Flexeril 10 mg Tablet] 10 mg PO DAILY 11/09/20 Famotidine [Acid [employer]] 20 mg PO BID 11/09/20 Gabapentin [Neurontin 100 mg Capsule] 100 mg PO TID 11/09/20 Tramadol HCl [Ultram 50 mg Tablet] 50 mg PO Q6HP PRN 11/09/20 Amoxicillin/Potassium Clav [Augmentin 875-125 Tablet] 1 tab PO Q12 #14 tablet 11/12/20 Metronidazole [Flagyl 500 mg Tablet] 500 mg PO TID #21 tablet 11/12/20 Oxycodone HCl/Acetaminophen [Percocet 5-325 mg Tablet] 1 tab PO Q6HP PRN #15 tablet 11/12/20 Additional Information: Discharge home. Diet as tolerated. Activity: Nonstrenuous. Follow-up with Dr. Huynh Wed. Nov 19, please call for appointment. OK to shower. History of Present Illiness History of Present Illness: DAVID ESTES is a 60 year old male Physical Exam Vital Signs: Temp Pulse Resp BP Pulse Ox 98.3 F 80 16 147/87 H 98 11/12/20 07:25 11/12/20 07:25 11/11/20 23:43 11/12/20 07:25 11/12/20 07:25 Intake & Output 11/11/20 11/12/20 11/13/20 06:59 06:59 06:59 Intake Total 2860 2770 Balance 2860 2770 Weight 82.1 kg 82.1 kg Results Laboratory Results: WBC 10.6 10^3/uL (4.0-10.5) H 11/08/20 12:59 RBC 4.41 10^6/uL (4.35-5.55) 11/08/20 12:59 Hgb 14.7 g/dL (13.5-17.0) 11/08/20 12:59 Hct 42.2 % (37.9-51.0) 11/08/20 12:59 MCV 96 fl (80-97) 11/08/20 12:59 MCH 33.4 pg (27.0-33.4) 11/08/20 12:59 MCHC 35.0 g/dL (32.0-36.0) 11/08/20 12:59 RDW 11.9 % (11.5-14.0) 11/08/20 12:59 Plt Count 312 10^3/uL (150-450) 11/08/20 12:59 Lymph % (Auto) 6.6 % (13-45) L 11/08/20 12:59 Glenn % (Auto) 9.9 % (3-13) 11/08/20 12:59 Eos % (Auto) 0.8 % (0-6) 11/08/20 12:59 Baso % (Auto) 0.2 % (0-2) 11/08/20 12:59 Absolute Neuts (auto) 8.8 10^3/uL (1.7-8.2) H 11/08/20 12:59 Absolute Lymphs (auto) 0.7 10^3/uL (0.5-4.7) 11/08/20 12:59 Absolute Monos (auto) 1.0 10^3/uL (0.1-1.4) 11/08/20 12:59 Absolute Eos (auto) 0.1 10^3/uL (0.0-0.6) 11/08/20 12:59 Absolute Basos (auto) 0.0 10^3/uL (0.0-0.2) 11/08/20 12:59 Seg Neutrophils % 82.5 % (42-78) H 11/08/20 12:59 PT 15.6 SEC (11.4-15.4) H 11/10/20 09:18 INR 1.22 11/10/20 09:18 Sodium 128.1 mmol/L (137-145) L 11/08/20 12:59 Potassium 3.2 mmol/L (3.6-5.0) L 11/08/20 12:59 Chloride 91 mmol/L (98-107) L 11/08/20 12:59 Carbon Dioxide 28 mmol/L (22-30) 11/08/20 12:59 Anion Gap 9 (5-19) 11/08/20 12:59 BUN 9 mg/dL (7-20) 11/08/20 12:59 Creatinine 0.70 mg/dL (0.52-1.25) 11/08/20 12:59 Est GFR ( Amer) > 60 (>60) 11/08/20 12:59 Est GFR (MDRD) Non-Af > 60 (>60) 11/08/20 12:59 Glucose 99 mg/dL (75-110) 11/08/20 12:59 Calcium 8.5 mg/dL (8.4-10.2) 11/08/20 12:59 Total Bilirubin 0.9 mg/dL (0.2-1.3) 11/08/20 12:59 Direct Bilirubin 0.1 mg/dL (0.0-0.4) 11/08/20 12:59 Neonat Total Bilirubin Not Reportable 11/08/20 12:59 Neonat Direct Bilirubin Not Reportable 11/08/20 12:59 Neonat Indirect Bili Not Reportable 11/08/20 12:59 AST 20 U/L (17-59) 11/08/20 12:59 ALT 15 U/L (<50) 11/08/20 12:59 Alkaline Phosphatase 63 U/L (38-126) 11/08/20 12:59 Total Protein 6.2 g/dL (6.3-8.2) L 11/08/20 12:59 Albumin 3.2 g/dL (3.5-5.0) L 11/08/20 12:59 Lipase 34.9 U/L (23-300) 11/08/20 12:59 Urine Color STRAW 11/08/20 15:06 Urine Appearance CLEAR 11/08/20 15:06 Urine pH 8.0 (5.0-9.0) 11/08/20 15:06 Ur Specific Wiley 1.003 11/08/20 15:06 Urine Protein NEGATIVE mg/dL (NEGATIVE) 11/08/20 15:06 Urine Glucose (UA) NEGATIVE mg/dL (NEGATIVE) 11/08/20 15:06 Urine Ketones NEGATIVE mg/dL (NEGATIVE) 11/08/20 15:06 Urine Blood NEGATIVE (NEGATIVE) 11/08/20 15:06 Urine Nitrite NEGATIVE (NEGATIVE) 11/08/20 15:06 Urine Bilirubin NEGATIVE (NEGATIVE) 11/08/20 15:06 Urine Urobilinogen NEGATIVE mg/dL (<2.0) 11/08/20 15:06 Ur Leukocyte Esterase NEGATIVE (NEGATIVE) 11/08/20 15:06 Urine WBC (Auto) 0 /HPF 11/08/20 15:06 Urine RBC (Auto) 0 /HPF 11/08/20 15:06 Urine Mucus (Auto) RARE /LPF 11/08/20 15:06 Urine Ascorbic Acid NEGATIVE (NEGATIVE) 11/08/20 15:06 Stool for White Cells NO WBCs SEEN 11/08/20 18:55 Influenza A (RT-PCR) NEGATIVE (NEGATIVE) 11/08/20 18:18 Influenza B (RT-PCR) NEGATIVE (NEGATIVE) 11/08/20 18:18 RSV (RT-PCR) NEGATIVE (NEGATIVE) 11/08/20 18:18 SARS-CoV-2 Rap RNA(RT-PCR) NEGATIVE (NEGATIVE) 11/08/20 18:18 Impressions: Abdomen/Pelvis CT 11/08/20 11:40 IMPRESSION: 6.5 x 5.8 by 3.7 cm pelvic abscess, right of the sigmoid colon. Additional 2.2 cm rim enhancing abscess is present in the right lower quadrant anterior to the psoas muscle adjacent to the tip of the appendix. Moderate inflammatory changes are present throughout the pericolic an right lower quadrant small bowel mesenteries with scattered areas of small bowel wall thickening. Oral contrast material passes through this region to the cecum. 12 mm low-density lesion in the inferior pancreatic neck, this has enlarged slightly compared with 2017, uncertain etiology. Percutaneous Drainage 11/10/20 00:00 IMPRESSION: Successful CT-guided placement of a 10 [employer] [place] all-purpose drainage catheter into the perirectal fluid collection. 5-10 mL of viscous fluid were aspirated from the collection and submitted for analysis.
[2020-11-12 11:02] VITALS: BP 141/82
== END 2020-11-12 11:33 | disposition home or self-care (01) | DRG 392 ==
LOC: ER 11:33 → EH 17:20 → 4S 20:40
PROVIDERS: ATTEND Hospitalist
PROC: 0D9P30Z Drainage of Rectum with Drainage Device, Percutaneous Approach (ICD-10-PCS; principal; 2020-11-10)
DX: K57.20 Diverticulitis of large intestine with perforation and abscess without bleeding (principal); E87.6 Hypokalemia; K21.9 Gastro-esophageal reflux disease without esophagitis; M19.90 Unspecified osteoarthritis, unspecified site; F90.9 Attention-deficit hyperactivity disorder, unspecified type; Z11.59 Encounter for screening for other viral diseases; Z79.899 Other long term (current) drug therapy; Z87.891 Personal history of nicotine dependence; Z80.0 Family history of malignant neoplasm of digestive organs; Z86.010 Personal history of colon polyps
CPT/HCPCS: 36415; 74177; 75989; 80053; 81001; 83690; 85025; 85610; 87040; 87045; 87070; 87075; 87205; 89055; 96361; 96374; 96375; 99285; 0241U; C1713; C1729; C1769; C1894; C9803; G0378; J0131; J1885; J2250; J2270; J2405; J2543; J3010; J3480; J7030; J7050; J7120

== ENCOUNTER → 2020-11-27 | Outpatient (CLI) | payer OTHER ==
--- NOTE | 2020-11-27 13:47 | RADIOLOGY REPORT (SQ) ---
EXAM DESCRIPTION: CT ABD/PELVIS WITH IV ORAL IMAGES COMPLETED DATE/TIME: 11/27/2020 1:06 pm REASON FOR STUDY: DIVERTICULITIS K57.92 DVTRCLI OF INTEST, PART UNSP, W/O PERF OR ABSCESS W/O COMPARISON: 11/08/2020 TECHNIQUE: CT scan of the abdomen and pelvis performed with intravenous and oral contrast using kelvin radha scanning technique with dynamic intravenous contrast injection. Images reviewed with lung, soft t issue, and bone windows. Reconstructed coronal and sagittal MPR images reviewed. Delayed images for e valuation of the urinary system also acquired. All images stored on PACS. All CT scanners at this facility use dose modulation, iterative reconstruction, and/or weight based d osing when appropriate to reduce radiation dose to as low as reasonably achievable (ALARA). [facility]: Dose Right [facility]: CareDose [facility]: Dose Right [facility]: Teradose 4D [facility]: [employer] CONTRAST TYPE AND DOSE: contrast/concentration: Isovue 350.00 mmol/ml; Total Contrast Delivered: 94. 0 ml; Total Saline Delivered: 45.0 ml RENAL FUNCTION: GFR > 60. RADIATION DOSE: CT Rad equipment meets quality standard of care and radiation dose reduction techniq ues were employed. CTDIvol: 7.2 - 7.2 mGy. DLP: 799 mGy-cm. . LIMITATIONS: None. FINDINGS: LOWER CHEST: No significant findings. No nodules or infiltrates. LIVER: Normal size. No masses. No dilated ducts. SPLEEN: Normal size. No focal lesions. PANCREAS: Cystic lesion in the pancreatic neck measures 13.5 x 15 mm. This measured about 10 mm 08/07. GALLBLADDER: No identified stones by CT criteria. No inflammatory changes to suggest cholecystitis. ADRENAL GLANDS: No significant masses or asymmetry. RIGHT KIDNEY AND URETER: No solid masses. No significant calcifications. No hydronephrosis or hyd roureter. LEFT KIDNEY AND URETER: No solid masses. No significant calcifications. No hydronephrosis or hydr oureter. AORTA AND VESSELS: No aneurysm. No dissection. Renal arteries, SMA, celiac without stenosis. RETROPERITONEUM: No retroperitoneal adenopathy, hemorrhage or masses. BOWEL AND PERITONEAL CAVITY: Diverticulosis descending and sigmoid colon. No inflammatory changes. APPENDIX: Not visualized. PELVIS: No significant masses. Normal bladder. No free fluid. ABDOMINAL WALL: Small fat containing umbilical hernia. BONES: No significant or acute findings. OTHER: No other significant finding. IMPRESSION: 1. Resolved diverticulitis. 2. Very slowly enlarging cystic lesion in the pancreatic neck. TECHNICAL DOCUMENTATION: JOB ID: [id number] Quality ID # [id number]: Final reports with documentation of one or more dose reduction techniques (e.g., Au tomated exposure control, adjustment of the mA and/or kV according to patient size, use of iterative reconstruction technique) 2010 [employer]- All Rights Reserved Reading location - IP/workstation name: [email or web address]
== END ==
LOC: RAD 12:40
PROVIDERS: ATTEND Surgery
DX: K57.92 Diverticulitis of intestine, part unspecified, without perforation or abscess without bleeding (principal)
CPT/HCPCS: 74177